=== PATIENT | male | born 1970 | race Caucasian/White ===

== ENCOUNTER 2018-04-29 17:48 | Emergency (ER) | payer MEDICAID, SELFPAY ==
[2018-04-29 17:49] VITALS: BP 161/92; PULSE 89; RESP 18; TEMP 36.7; O2SAT 97; BMI 29.9
[2018-04-29 19:21] LABS: Absolute Lymphocyte Count 1.72 X10^3/ul (0.83-4.51); Absolute Neutrophil Count 2.8 X10^3/uL (2.0-7.7); Basophil# 0.03 X10^3/uL; Basophil% 0.6 % (0-1); Eosinophil# 0.15 X10^3/uL; Eosinophils% 2.9 % (0-5); Hematocrit 38.5 % (40-54); Hemoglobin 12.9 g/dl (13.0-16.5); Lymphocyte # 1.72 X10^3/ul (4.0); Lymphocyte % 33.1 % (19-41); Mean Corp Hgb Conc 33.5 g/gl (32-36); Mean Corpuscular Hgb 31.7 pg (27.0-32.0); Mean Corpuscular Volume 94.6 fL (80-94); Monocyte# 0.44 X10^3/uL; Monocyte% 8.5 % (0-10); Neutrophil # 2.84 X10^3/uL (2.7-7.7); Neutrophil % 54.7 % (47-70); Platelet Count 166 K/mm3 (150-450); RBC Distribution Width CV 12.6 % (11.6-14.6); RBC Distribution Width SD 43.2 fl (35.1-43.9); Red Blood Count 4.07 M/mm3 (4.6-6.2); White Blood Count 5.2 K/mm3 (4.4-11.0)
[2018-04-29 19:22] LABS: POSITIVE COUNT NO; POSITIVE DIFFERENTIAL NO; POSITIVE MORPHOLOGY NO
[2018-04-29 19:39] LABS: ALB/GLOB Ratio 1.3 RATIO (0.9-2.4); AST(SGOT) 15 U/L (15-37); Alanine Aminotransfer ALT/SGPT 32 U/L (16-61); Albumin, Serum 3.9 g/dL (3.2-5.0); Alkaline Phosphatase 71 U/L (45-117); Anion Gap 9 (5-15); BUN 14 mg/dL (7-18); BUN/Creat Ratio 16.9 RATIO (10-20); Calcium,Total 8.8 mg/dL (8.5-10.1); Chloride 104 mmol/L (98-107); Creatinine, Serum 0.83 mg/dL (0.70-1.30); EST Glomerular Filtration Rate 106 mL/min (>60); Est Glom Filt Rate - Afr Amer 128 mL/min (>60); Estimated Creatinine Clearance 122.06 ml/min; Glucose 146 mg/dL (74-106); Potassium 3.6 mmol/L (3.5-5.1); Protein, Total 6.9 g/dL (6.4-8.2); Sodium Level 141 mmol/L (136-145)
[2018-04-29 19:42] LABS: Color, Urine Yellow (Yellow); Glucose, Dipstick Normal (Normal); Ketone-Dipstick Negative (Negative); Leukocyte Esterase-Dipstick 25 /ul (Negative); Nitrite-Dipstick Negative (Negative); Occult Blood-Urine 50 /ul (Negative); Protein-Dipstick Negative (Negative); Urine Bilirubin Dipstick Negative (Negative); Urine Clarity Clear (Clear); Urine Urobilinogen 1 mg/dl (Normal)
[2018-04-29 19:56] VITALS: BP 124/63; PULSE 69; RESP 15; O2SAT 96
[2018-04-29 20:00] VITALS: BP 154/84; PULSE 61; RESP 15; O2SAT 97
--- NOTE | 2018-04-29 21:26 | ED.VISSUMM ---
- ER Visit Summary Date of Service: 04/29/18 Chief Complaint: Bilateral lower extremity swelling and rash History of Present Illness: The patient is a 47 M who presents because of swelling of his legs and feet. 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 Recently he has been sitting it as long as 18 hours. He denies history of congestive heart failure. Does have history coronary disease with placement of 1 stent. He also has hypertension. He denies orthopnea or PND. states he snores during the night and has trouble sleeping. He is not undergone workup for obstructive sleep apnea. This raises possibility of right heart failure, pulmonary hypertension and could be because of edema the lower extremity, as well. The air conditioner in the He has been driving has not been working well and he has hot and sweaty. Physical Examination: Vital signs were noted and remarkable blood pressure 151/92. HEENT exam is unremarkable. Heart is regular without murmur, gallop or rub. S1 and S2 are normal. Lungs are clear to auscultation with good movement of air bilaterally. Abdomen soft nontender. There is swelling of both legs and his feet. There is 1-2+ pitting edema. There is no asymmetry or discoloration. There is no palpable cords, tenderness on the revision of deep venous system or leg vein distention. He does have a red pustular rash noted dorsal surface of the foot anterior ankle and anterior right and left leg. Test Results: CBC reveals mild anemia with H&H 12.9 and 30.5. CMP is remarkable glucose 146. UA was obtained and there is no evidence of proteinuria. Emergency Department Course and Treatment: With history of coronary disease and edema this may represent right-sided heart failure from undiagnosed obstructive sleep apnea, heart failure secondary cardiac disease or dependent edema. To evaluate this a urinalysis was obtained and electronic panel. White count was obtained looking for evidence of leukocytosis significant anemia etc. Treatment Plan: Antibiotic for pustular rash, doxycycline. Patient was given first dose in the emergency department. And elevation. If there is no improvement with elevation will need to purchase support hose. Disposition: Discharged home with appropriate home-going instruction Impression: 1. Dependent edema 2. Pustular rash lower extremity 3. History of coronary disease 4. History of hypertension This note was generated with [employer] software. It may contain incorrect words, spelling, and punctuation that were not noted in review of the chart prior to signing ED Disposition - Plan for ED Patient: Disposition: Home or Assisted Living Chief Complaint: Edema Instructions: ED Lymphedema, ED Erythema Prescriptions: Doxycycline [Vibramycin] 100 mg PO BID #14 cap Referrals: Care Physician,No Primary [Primary Care Provider] - Doctor,Your [STAFF PHYSICIAN] - 1 Week if not improving
[2018-04-29 21:39] VITALS: BP 165/92; PULSE 77; RESP 16; O2SAT 97
== END 2018-04-29 21:41 | disposition home or self-care (01) ==
PROVIDERS: Emergency Provider Emergency Medicine
DX: R60.9 Edema, unspecified (principal); L08.0 Pyoderma; I10 Essential (primary) hypertension; I25.10 Atherosclerotic heart disease of native coronary artery without angina pectoris; Z95.5 Presence of coronary angioplasty implant and graft
CPT/HCPCS: 80053; 81002; 85025; 93005; 99282; A4216

== ENCOUNTER 2018-05-16 12:40 | Emergency (ER) | payer MEDICAID, SELFPAY ==
[2018-05-16 12:42] VITALS: BP 145/94; PULSE 77; RESP 18; TEMP 36.6; O2SAT 98; BMI 28.4
--- NOTE | 2018-05-16 13:39 | ED.VISSUMM ---
- ER Visit Summary Date of Service: 05/16/18 Chief Complaint: Sent to ER by farm specialist to evaluate for DVT. History of Present Illness: The patient is a 47 M who has history of coronary disease, edema who presents because of pain that he localizes over the medial malleolus. He was seen on April 29, 2018 by me for similar presentation. At that time he complained of feet pain and edema. It was determined that he has not been as active. He denies fever, chills night sweats. He denies orthopnea or PND. He denies dyspnea on exertion. He denies symptoms of claudication. He denies history of trauma. Physical Examination: Vital signs noted and remarkable for blood pressure 145/94. HEENT is grossly unremarkable. Heart is regular without murmur, gallop or rub. Lungs clear to auscultation. There is 1-2+ pitting edema of both feet and right and left distal leg. There is no pain the patient over the lateral medial malleolus. There is no evidence of trauma. He has minimal discomfort. PT pulses palpable. Test Results: None are indicated Emergency Department Course and Treatment: Patient has dependent edema. He was told this is related to his inactivity. There is no concern for DVT. Treatment Plan: Discharge to home and follow-up with PCP and farm specialist as needed Disposition: Discharged home Impression: Bilateral dependent lymphedema History of coronary disease History of hypertension This note was generated with [employer] dictation software. It may contain incorrect words, spelling, and punctuation that were not noted in review of the chart prior to signing ED Disposition - Plan for ED Patient: Disposition: Home or Assisted Living Chief Complaint: Lower Extremity Injury Instructions: ED Leg Swelling Bilateral Referrals: Care Physician,No Primary [Primary Care Provider] - Additional Instructions: Follow-up with your farm specialist in 1 week.
--- NOTE | 2018-05-16 13:42 | ED.DCSUM_ITS ---
- ER Visit Summary Date of Service: 05/16/18 Chief Complaint: Sent to ER by anesthesia assistant to evaluate for DVT. History of Present Illness: The patient is a 47 M who has history of coronary disease, edema who presents because of pain that he localizes over the medial malleolus. He was seen on April 29, 2018 by me for similar presentation. At that time he complained of feet pain and edema. It was determined that he has not been as active. He denies fever, chills night sweats. He denies orthopnea or PND. He denies dyspnea on exertion. He denies symptoms of claudication. He denies history of trauma. Physical Examination: Vital signs noted and remarkable for blood pressure 145/ 94. HEENT is grossly unremarkable. Heart is regular without murmur, gallop or rub. Lungs clear to auscultation. There is 1-2+ pitting edema of both feet and right and left distal leg. There is no pain the patient over the lateral medial malleolus. There is no evidence of trauma. He has minimal discomfort. PT pulses palpable. Test Results: None are indicated Emergency Department Course and Treatment: Patient has dependent edema. He was told this is related to his inactivity. There is no concern for DVT. Treatment Plan: Discharge to home and follow-up with PCP and anesthesia assistant as needed Disposition: Discharged home Impression: Bilateral dependent lymphedema History of coronary disease History of hypertension This note was generated with [employer] dictation software. It may contain incorrect words, spelling, and punctuation that were not noted in review of the chart prior to signing ED Disposition - Plan for ED Patient: Disposition: Home or Assisted Living Chief Complaint: Lower Extremity Injury Instructions: ED Leg Swelling Bilateral Referrals: Care Physician,No Primary [Primary Care Provider] - Additional Instructions: Follow-up with your anesthesia assistant in 1 week.
--- NOTE | 2018-05-16 15:01 | ED.RN ---
UPON DISCHARGE PT STARTED YELLING THAT THE DOCTOR DIDNT DO ANYTHING PT WAS VERY ANGRY. EMOTIONAL SUPPORT PROVIDED BUT PT DID NOT ACCEPT. PT WALKED OUT OF BUILDING YELLING THAT HE WILL BE BACK. HRO AND SECURITY NOTIFIED. DR JOHNSON NOTIFIED. PT COMES BACK INTO HIS ROOM. O, DR JOHNSON AND THIS RN AT BEDSIDE EDUCATED PT ON DX AND WHY HE DID NOT MEET CRITERIA FOR FURTHER TESTING. PT STARTED YELLING AT DR JOHNSON. KATIE THOMAS REMAINS AT BEDSIDE. DR JOHNSON LEFT THE ROOM WITH THE PT STILL SCREAMING. PT WAS TOLD HE WAS MORE THAN WELCOME TO GET A SECOND OPINION. PT LEFT DEPARTMENT STILL YELLING. HRO WATCHED PT LEAVE THE PROPERTY.
== END 2018-05-16 15:11 | disposition home or self-care (01) ==
PROVIDERS: Emergency Provider Emergency Medicine
DX: I89.0 Lymphedema, not elsewhere classified (principal); I25.10 Atherosclerotic heart disease of native coronary artery without angina pectoris; I10 Essential (primary) hypertension; Z72.0 Tobacco use
CPT/HCPCS: 99282

== ENCOUNTER 2018-06-17 18:22 | Emergency (ER) | payer MEDICAID, SELFPAY ==
[2018-06-17 18:23] VITALS: PULSE 77; RESP 18; TEMP 37; O2SAT 99; BMI 30.3
[2018-06-17 18:26] VITALS: BP 158/107
--- NOTE | 2018-06-17 18:27 | RAD_ITS ---
STUDY: X-RAY - RIGHT HAND REASON FOR EXAM: Male, 47 years old. Injury. Pain. TECHNIQUE: Three view(s) of the hand. COMPARISON: None. FINDINGS: Bones: There are no acute osseous abnormalities. Joints: The joints are unremarkable. Soft tissues: The soft tissues are unremarkable. Foreign body: None RAD/Hand Min 3 Views IMPRESSION: No acute abnormalities are seen in the hand. Electronically Signed: Jet Del Valle MD at 19:14 EDT , Service support ,
--- NOTE | 2018-06-17 18:50 | ED.VISSUMM ---
- ER Visit Summary Date of Service: 06/17/18 Chief Complaint: Right hand pain History of Present Illness: The patient is a 47 M who has right hand pain. He states he had a chair with his right hand. He has pain over the second MCP area. Is worse with movement. He took nothing for it. He does have a history of a previous fracture to this hand. Physical Examination: Vital signs reviewed. Right hand exam reveals tenderness over the second metacarpal joint area. He has painful range of motion. Test Results: X-rays of the right hand interpreted by myself reveal no fracture Emergency Department Course and Treatment: Patient declined pain medications. He will ice and use NSAIDs at home. He will follow-up with his primary care physician Treatment Plan: [] Disposition: Discharge Impression: Right hand contusion This note was generated with [employer] dictation software. It may contain incorrect words, spelling, and punctuation that were not noted in review of the chart prior to signing ED Disposition - Plan for ED Patient: Disposition: Home or Assisted Living Chief Complaint: Upper Extremity Injury Instructions: ED Contusion Upper Ext Referrals: Care Physician,No Primary [Primary Care Provider] -
--- NOTE | 2018-06-17 18:55 | ED.RN ---
DISCHARGE INSTRUCTIONS GIVEN TO AND REVIEWED WITH PATIENT, PATIENT DENIES QUESTIONS OR CONCERNS AND VOICES UNDERSTANDING OF DISCHARGE INSTRUCTIONS. PT AMBULATES OUT OF ROOM WITHOUT DIFFICULTY .
== END 2018-06-17 18:56 | disposition home or self-care (01) ==
PROVIDERS: Emergency Provider Emergency Medicine
DX: S60.221A Contusion of right hand, initial encounter (principal); W22.03XA Walked into furniture, initial encounter; Y93.9 Activity, unspecified; Y92.9 Unspecified place or not applicable; Y99.9 Unspecified external cause status; I25.10 Atherosclerotic heart disease of native coronary artery without angina pectoris; Z72.0 Tobacco use
CPT/HCPCS: 73130; 99282

== ENCOUNTER 2018-10-15 09:13 | Emergency (ER) | payer MEDICAID, SELFPAY ==
[2018-10-15 09:14] VITALS: BP 169/99; PULSE 77; RESP 18; TEMP 36.6; O2SAT 100
[2018-10-15 09:24] VITALS: BP 169/99; PULSE 77; RESP 15; TEMP 36.6; O2SAT 100
--- NOTE | 2018-10-15 09:28 | CT_ITS ---
STUDY: CT ABDOMEN AND PELVIS WITHOUT CONTRAST REASON FOR EXAM: Male, 48 years old. PT STATED LEFT FLANK PAIN, STATES US AT ANOTHER FACILITY SHOWED 2 KIDNEY STONES 5 DAYS AGO.. RADIATION DOSAGE (If Supplied By Facility): CTDIvol = ( 14.35 ) mGy, DLP = ( 760.04 ) mGycm TECHNIQUE: Transaxial images were obtained from the dome of the diaphragm to the symphysis pubis without oral contrast, and without intravenous contrast. Sagittal and coronal images were reconstructed. Individualized dose optimization techniques were used for this CT. COMPARISON: July 05, 2017 FINDINGS: The visualized lung bases are unremarkable. The visualized portions of the heart are within normal limits. Normal liver. Normal gallbladder and extrahepatic biliary system. Normal spleen. Normal pancreas. Normal bilateral adrenal glands. Normal right kidney. There is a 2 mm calcification at the midpole of the left kidney Normal visualized stomach. Normal small intestine. There are multiple colonic diverticula consistent with diverticulosis. The appendix is visualized and appears normal. There is diffuse atherosclerotic calcification of the abdominal aorta, without a demonstrated aneurysm. Normal inferior vena cava. Normal retroperitoneum. Normal urinary bladder. Normal abdominal wall. There are diffuse degenerative changes of the visualized lumbar spine. CT/Abdomen/Pelvis without Cont IMPRESSION: 2 mm nonobstructing left kidney stone. Mild diverticulosis. Electronically Signed: Ana Montoya MD at 10:15 EST Tel , Service support ,
[2018-10-15 09:33] LABS: Squamous Epithelial Cells - UA 0 SEEN /hpf (0-5); White Blood Cells 0 SEEN /hpf (0-5)
[2018-10-15 09:36] LABS: Color, Urine Yellow (Yellow); Glucose, Dipstick Normal (Normal); Ketone-Dipstick Negative (Negative); Leukocyte Esterase-Dipstick Negative /ul (Negative); Nitrite-Dipstick Negative (Negative); Occult Blood-Urine 50 /ul (Negative); Protein-Dipstick Negative (Negative); Urine Bilirubin Dipstick Negative (Negative); Urine Clarity Sl. Cloudy (Clear); Urine Urobilinogen Normal (Normal)
[2018-10-15] MEDS: Ketorolac 30 MG/ML Syringe IV (09:40)
[2018-10-15 09:41] LABS: Bacteria RARE /hpf (None Seen); Mucous, Urine 1+ /hpf (<or=2+); Red Blood Cells-Urine 0-5 SEEN /hpf (0-5)
--- NOTE | 2018-10-15 09:43 | ED.DCSUM_ITS ---
- ER Visit Summary Date of Service: 10/15/18 Chief Complaint: Left flank pain History of Present Illness: The patient is a 48 M presenting with left flank pain. Patient states this has been intermittent since . He went to his primary care physician and was told he has blood in his urine. He had an outpatient ultrasound which showed kidney stone. He has tried heating pad, Motrin, Tylenol, Aleve at home. He continues to complain of pain. He states he has had some difficulty starting urine stream but has been able to urinate. He denies dysuria. He has nausea with no vomiting. Pain is worsened with different positions. Denies fever. Denies other complaints. Physical Examination: Vitals are stable. Patient is afebrile. Alert no acute distress. HEENT exam is unremarkable. Neck is supple. Lungs are clear and equal bilaterally. Heart is regular rate and rhythm. Abdomen is soft nontender nondistended. No rebound or guarding. Back left CVA tenderness Extremities are unremarkable. Skin is warm and dry. Remainder of exam is unremarkable. Emergency Department Course and Treatment: Patient was given Toradol IV. Urinalysis shows 0 white cells, 0-[address] abdomen pelvis shows 2 mm nonobstructing left kidney stone. Mild diverticulosis. On reevaluation, patient is resting comfortably. He is given a prescription for Flexeril. Advised to continue NSAIDs. Advised to follow-up with primary care physician. Advised return to ED if worsening complaints. Disposition: Discharge home Impression: Left flank pain This note was generated with [employer] dictation software. It may contain incorrect words, spelling, and punctuation that were not noted in review of the chart prior to signing ED Disposition - Plan for ED Patient: Referrals: Care Physician,No Primary [Primary Care Provider] -
--- NOTE | 2018-10-15 11:03 | ED.DEP ---
ED Disposition - Plan for ED Patient: Instructions: ED Flank Pain Uncertain Cause Prescriptions: Cyclobenzaprine [Flexeril] 10 mg PO TID PRN #20 tablet PRN Reason: Muscle Spasm Referrals: Care Physician,No Primary [Primary Care Provider] -
[2018-10-15 11:22] VITALS: RESP 18
== END 2018-10-15 11:23 | disposition home or self-care (01) ==
LOC: ED 09:29
PROVIDERS: Emergency Provider Emergency Medicine
DX: R10.9 Unspecified abdominal pain (principal); N20.0 Calculus of kidney; K57.90 Diverticulosis of intestine, part unspecified, without perforation or abscess without bleeding; R31.9 Hematuria, unspecified; R11.0 Nausea; I25.10 Atherosclerotic heart disease of native coronary artery without angina pectoris; I10 Essential (primary) hypertension; Z72.0 Tobacco use
CPT/HCPCS: 74176; 81001; 96374; 99283; A4216

== ENCOUNTER 2019-01-24 10:24 | Emergency (ER) | payer MEDICAID, SELFPAY ==
[2019-01-24 10:25] VITALS: BP 140/92; PULSE 73; RESP 16; TEMP 37.3; O2SAT 98; BMI 29.0
--- NOTE | 2019-01-24 10:45 | CT_ITS ---
STUDY: CT SOFT TISSUE NECK WITH CONTRAST REASON FOR EXAM: Male, 48 years old. Right facial swelling and history of infected salivary gland. RADIATION DOSAGE (If Supplied By Facility): CTDIvol = ( 20.19 ) mGy, DLP = ( 635.45 ) mGycm TECHNIQUE: The patient was scanned in a multi-detector CT scanner. High resolution transaxial imaging was performed following intravenous administration of 100 IV Isovue 300. Sagittal and coronal images were reconstructed. Individualized dose optimization techniques were used for this CT. COMPARISON: None. FINDINGS: Normal bilateral parotid glands. Normal bilateral boatbuilder wood spaces. Normal bilateral parapharyngeal spaces. Normal bilateral carotid spaces. Normal bilateral sublingual and submandibular glands and spaces. Normal visualized nasopharynx. Normal retropharyngeal space. Normal perivertebral space. Normal visualized bilateral faucial tonsils. The visualized tongue, tongue base and oropharynx are normal. There are minimally enlarged lymph nodes of the neck, with preservation of normal reema architecture, consistent with a reactive lymph hyperplasia. There is no demonstrated solid or cystic mass lesion. There is no abnormal contrast enhancement. Normal epiglottis, bilateral vallecula and hypopharynx. The pre-epiglottic and paraglottic adipose spaces are normal. Normal visualized bilateral piriform sinuses, aryepiglottic folds, vocal cords, and arytenoid-cricoid articulations. Normal subglottic trachea. Normal bilateral lobes of the thyroid gland. Normal visualized pulmonary apices. Normal visualized paranasal sinuses. Normal visualized cervical spine. CT/Soft Tissue Neck WITH Contrast IMPRESSION: Normal enhanced CT examination of the soft tissues of the neck. Electronically Signed: Ranjith Turner, at 11:21 EDT , Service support ,
--- NOTE | 2019-01-24 11:12 | ED.DCSUM_ITS ---
- ER Visit Summary Date of Service: 01/24/19 Chief Complaint: Right-sided neck pain History of Present Illness: The patient is a 48 M who has right-sided neck pain. Is been ongoing for 2 weeks. He describes a throbbing just below the angle of the mandible on the right-hand side. He was on amoxicillin for 10 days from the urgent care for a proposed salivary gland infection. The pain is still there even after the antibiotics. He denies any fevers. No trauma. He has been trying Motrin and Tylenol without any relief. He denies any ear pain or drainage. No sore throat with swallowing. Physical Examination: Vital signs reviewed. HEENT exam reveals mucous membrane that are moist. His oropharynx is normal. He has right-sided neck tenderness to palpation. There are no masses or swelling. His neck is supple. His physical exam is otherwise unremarkable. See T-sheet for details Test Results: CT of the soft tissue neck reveals no acute abnormalities Emergency Department Course and Treatment: I am unclear of the patient's pain as he has no obvious causes on the CAT scan. I will give him naproxen to help with pain control. I will give him referral for a follow-up to a primary doctor Treatment Plan: [] Disposition: Discharge Impression: Right-sided neck pain This note was generated with [employer] dictation software. It may contain incorrect words, spelling, and punctuation that were not noted in review of the chart prior to signing ED Disposition - Plan for ED Patient: Referrals: Care Physician,No Primary [Primary Care Provider] -
--- NOTE | 2019-01-24 11:35 | ED.DEP ---
ED Disposition - Plan for ED Patient: Disposition: Home or Assisted Living Instructions: ED Neck Pain No Trauma Prescriptions: Naproxen [Naprosyn] 500 mg PO BID PRN #20 tab Referrals: Care Physician,No Primary [Primary Care Provider] - Maci Davis MD [COURTESY STAFF PHYSICIAN] -
--- NOTE | 2019-01-24 11:52 | ED.RN ---
IV DC'ED, CATHETER INTACT, SMALL GAUZE DRESSING PLACED. DISCHARGE INSTRUCTIONS GIVEN TO AND REVIEWED WITH PATIENT, PATIENT DENIES QUESTIONS OR CONCERNS AND VOICES UNDERSTANDING OF DISCHARGE INSTRUCTIONS. PT AMBULATES OUT OF ROOM WITHOUT DIFFICULTY.
== END 2019-01-24 11:52 | disposition home or self-care (01) ==
PROVIDERS: Emergency Provider Emergency Medicine
DX: M54.2 Cervicalgia (principal); I25.10 Atherosclerotic heart disease of native coronary artery without angina pectoris; I10 Essential (primary) hypertension; Z72.0 Tobacco use; I25.2 Old myocardial infarction
CPT/HCPCS: 70491; 99283; A4216

== ENCOUNTER 2019-05-16 04:07 | Emergency (ER) | payer OTHER, SELFPAY ==
[2019-05-16 04:08] VITALS: BP 149/94; PULSE 81; RESP 16; TEMP 36.7; O2SAT 99; BMI 27.9
--- NOTE | 2019-05-16 04:22 | ED.DCSUM_ITS ---
History of Present Illness Chief Complaint: Upper Extremity Injury Narrative: Patient is a 48-year-old male who presents with right forearm pain. 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 He had a sudden pain in his mid right forearm along the ulnar side. He was able to go to work and work for 12 hours but does complain of ongoing pain in the forearm. No numbness tingling or weakness. No recent medical illness otherwise. Past Medical History - Allergies and Home Meds Allergies/Adverse Reactions: Allergies No Known Allergies Allergy (Verified 05/16/19 04:08) Primary Care Physician: Care Physician,No Primary [Primary Care Provider] - Past Medical History: - - Coronary artery disease, [place], cardiac catheterization with stent Surgical History: - - cardiac catheterization Smoking Status: Current every day smoker - Family History Paternal Family History: Reports: High Cholesterol, Heart Disease Maternal Family History: Reports: High Cholesterol, Heart Disease Review of Systems All systems negative except as indicated General: Denies: Fever Cardiovascular: Denies: Chest pain Respiratory: Denies: Dyspnea Musculoskeletal: Reports: - - Right forearm pain Physical Exam Vital Signs/Narrative: Vital Signs Temp Pulse Resp BP Pulse Ox 05/16/19 04:08 98.1 F 81 16 149/94 H 99 Inital Vital Signs reviewed: Yes General: Well nourished Head: Normocephalic Eyes: EOMI ENT: Moist mucous membranes Cardiovascular: Regular rate Respiratory: No distress Extremities: - - Patient has tenderness along the mid forearm on the ulnar side no bony deformity active full range of motion of the right upper extremity easily palpable radial pulse brisk capillary refill of the digits normal sensation to light touch in the median ulnar and radial nerve distributions. Skin: Normal color Neurological: Alert Psychological: Normal affect Diagnostic/Tx/Re-eval Impressions Forearm X-Ray 05/16/19 04:22 IMPRESSION: Normal x-ray examination of the radius and ulna. Electronically Signed: Nate Horton MD at 4:56 EDT , Service support , 05/16/19 04:22 Forearm 2 Views [RAD] Stat - Medical Decision Making X-ray unremarkable, no fracture. Symptoms are most consistent with a muscular forearm strain. Patient advised on supportive care such as rest ice elevation. He was advised to use anti-inflammatories. He understands to return for new or worsening symptoms. He was discharged. ED Disposition - Plan for ED Patient: Disposition: Home or Assisted Living Diagnosis: Strain of forearm, right Instructions: MUSCLE STRAIN, Extremity Referrals: Care Physician,No Primary [Primary Care Provider] -
--- NOTE | 2019-05-16 04:22 | RAD_ITS ---
STUDY: X-RAY - RIGHT RADIUS AND ULNA REASON FOR EXAM: Male, 48 years old. Pain proximal one half of the right forearm after injury. TECHNIQUE: 2 view(s) of the forearm. COMPARISON: None. FINDINGS: There is no demonstrated soft tissue swelling. Normal visualized radius. Normal visualized ulna. RAD/Forearm 2 Views IMPRESSION: Normal x-ray examination of the radius and ulna. Electronically Signed: Nate Horton MD at 4:56 EDT , Service support ,
[2019-05-16 05:21] VITALS: PULSE 78; RESP 16; O2SAT 100
== END 2019-05-16 05:22 | disposition home or self-care (01) ==
PROVIDERS: Emergency Provider Emergency Medicine
DX: S56.911A Strain of unspecified muscles, fascia and tendons at forearm level, right arm, initial encounter (principal); X50.1XXA Overexertion from prolonged static or awkward postures, initial encounter; Y93.9 Activity, unspecified; Y92.007 Garden or yard of unspecified non-institutional (private) residence as the place of occurrence of the external cause; Y99.9 Unspecified external cause status; I25.10 Atherosclerotic heart disease of native coronary artery without angina pectoris; I25.2 Old myocardial infarction; F17.200 Nicotine dependence, unspecified, uncomplicated
CPT/HCPCS: 73090; 99282

== ENCOUNTER 2020-04-13 21:02 | Emergency (ER) | payer SELFPAY ==
[2019-10-04 13:33] VITALS: BMI 26.5
[2020-04-13 21:03] VITALS: BP 143/91; PULSE 90; RESP 15; TEMP 36.4; O2SAT 97; BMI 25.0
--- NOTE | 2020-04-13 21:18 | ED.VIS.INJ ---
History of Present Illness Chief Complaint: Upper Extremity Injury Informant: Patient Onset: Today Mechanism/Context: Blunt Injury, Fall Quality of Pain: Dull, Aching Location: Right wrist Current Severity: Mild Maximum Severity: Moderate Worsened by: Movement or use Relieved by: Less pain with rest Associated Symptoms: Loss of function. Negative for: Parasthesias, Weakness, Inability to ambulate, Loss of consciousness Narrative: Patient is a 49-year-old [id number] male presents with injury to his right wrist. He was walking. He slipped on rocks. He landed on his outstretched right upper extremity. He presents because of wrist pain and swelling. He reports pain that is 3 cm proximal to the wrist joint and mid hand. There is swelling noted over the distal radial side of the wrist. He denies paresthesia, anesthesia or motor weakness. He states he drove himself to the emergency department. He denies injury to his elbow, shoulder, torso or head. Prior similar symptoms: No Recent Illness/Hospitalization: No - Past Medical History (1) Atherosclerotic heart disease of [place] coronary artery without angina pectoris Status: Chronic (2) Essential hypertension Status: Chronic (3) Mixed hyperlipidemia Status: Chronic (4) Tobacco abuse Status: Chronic Past Medical History - Allergies and Home Meds Allergies/Adverse Reactions: Allergies No Known Allergies Allergy (Verified 04/13/20 21:06) Primary Care Physician: Care Physician,No Primary [Primary Care Provider] - Prior records reviewed: Yes Surgical History: noncontributory, - - cardiac catheterization Lives: Alone Smoking Status: Current every day smoker Drugs: None - Family History Paternal Family History: Family History (Last Updated 10/04/19 @ 13:39 by Tuyet Vaughn) Father Myocardial infarction CHF (congestive heart failure) Mother CHF (congestive heart failure) Family History: Reports: High Cholesterol, Heart Disease Maternal Family History: Family History (Last Updated 10/04/19 @ 13:39 by Tuyet Vaughn) Father Myocardial infarction CHF (congestive heart failure) Mother CHF (congestive heart failure) Family History: Reports: High Cholesterol, Heart Disease Review of Systems General: Denies: Chills, Fever Eyes: Denies: Visual changes - bilaterally, Blurred Vision - bilaterally Cardiovascular: Denies: Chest pain, Palpitations Respiratory: Denies: Dyspnea, Cough Gastrointestinal: Denies: Nausea, Vomiting Musculoskeletal: Reports: Swelling, Extremity Pain. Denies: Myalgias, Arthralgias Skin: Denies: Rash, Abscess, Abrasions Neurological: Denies: Weakness, Parasthesia, Numbness Hematologic: Denies: Easy bruising, Easy bleeding Physical Exam Vital Signs/Narrative: Vital Signs Temp Pulse Resp BP Pulse Ox 04/13/20 21:03 97.5 F L 90 15 143/91 H 97 Inital Vital Signs reviewed: Yes General: Well nourished, Well developed Head: Normocephalic, Atraumatic Eyes: Perrl, EOMI. Negative for: Pale conjunctiva, Scleral icterus Cardiovascular: Regular rate, Regular rhythm Respiratory: No distress Extremeties: Is swelling over the anatomical snuffbox. There is pain with axial loading of the right thumb and over the anatomical snuffbox. There is pain to palpation over the distal radius. There is no pain ovation of the distal ulna. There is no pain the patient over the metacarpal bones or phalanges. There is no subungual hematoma noted. Median, radial and ulnar function intact. There is no pain the patient over the lateral medial epicondyle has no pain the patient with olecranon process. Is no pain the patient over the radial head with supination pronation. There is no pain the patient over the proximal humerus, clavicle or AC joint. Skin: Normal color, No rash Neurological: Alert, Oriented x3, Cranial nerves II-XII grossly intact, Normal Strength, Normal Sensation Diagnostic/Tx/Re-eval Chest X-Ray - ED: Read by ED Physician, - - 4 view x-ray of the wrist was obtained. Patient has a transverse nondisplaced non-angulated extra-articular distal radial fracture. - Medical Decision Making Review x-ray of the right wrist was obtained including a navicular view. Clinically concern patient has a navicular fracture. Procedures - Upper Extremity Splints Upper Extremity Splint: Plaster - Short arm AP splint Splint Fabrication: Fabricated ED Disposition - Plan for ED Patient: Disposition: Home or Assisted Living Diagnosis: Distal radius fracture, right Instructions: ED WRIST FRACTURE General Prescriptions: Hydrocodone Bitart/Apap 5-325 [[place] 5MG-325MG] 1 tab PO Q6H PRN PRN 3 Days #10 tab PRN Reason: Pain Transmission Status: Received by [facility] Referrals: Care Physician,No Primary [Primary Care Provider] - Susannah Miguel DO [STAFF PHYSICIAN] - 5-7 Days Additional Instructions: 1. Keep splint absolutely clean and dry 2. Keep wrist elevated above nose 3. Apply ice to splint 6-8 times a day for 20 to 30 minutes per application 4. Call Dr. Miguel's office in the morning to set up an appointment.
--- NOTE | 2020-04-13 21:36 | RAD_ITS ---
STUDY: X-RAY - RIGHT WRIST REASON FOR EXAM: Male, 49 years old. PAIN IN RIGHT WRIST SPECIFICALLY IN THE ANATOMICAL SNUFFBOX, INJURY FROM FALL. TECHNIQUE: 3 view(s) of the wrist were obtained. COMPARISON: None. FINDINGS: Acute nondisplaced fracture of the distal right radius with mild associated soft tissue swelling. The remainder of the visualized osseous structures are intact. No fracture identified at the scaphoid. RAD/Wrist min 3 Views IMPRESSION: Acute nondisplaced fracture of the distal right radius with mild associated soft tissue swelling. Electronically Signed: Enrique Riley, at 22:09 EDT Tel , Service support ,
[2020-04-13 22:49] VITALS: BP 152/109
== END 2020-04-13 23:45 | disposition home or self-care (01) ==
PROVIDERS: Emergency Provider Emergency Medicine
DX: S52.591A Other fractures of lower end of right radius, initial encounter for closed fracture (principal); W01.198A Fall on same level from slipping, tripping and stumbling with subsequent striking against other object, initial encounter; Y93.01 Activity, walking, marching and hiking; Y92.9 Unspecified place or not applicable; Y99.9 Unspecified external cause status; E78.2 Mixed hyperlipidemia; I10 Essential (primary) hypertension; I25.10 Atherosclerotic heart disease of native coronary artery without angina pectoris; F17.200 Nicotine dependence, unspecified, uncomplicated; Z82.49 Family history of ischemic heart disease and other diseases of the circulatory system
CPT/HCPCS: 29125; 73110; 99283

== ENCOUNTER → 2020-04-24 14:10 | Outpatient (CLI) | payer SELFPAY ==
[2020-04-24 14:07] VITALS: BMI 25.7
--- NOTE | 2020-04-24 14:10 | RAD_ITS ---
STUDY: X-RAY - RIGHT WRIST REASON FOR EXAM: Follow-up right wrist fracture. TECHNIQUE: 3 view(s) of the wrist were obtained. COMPARISON: Radiographs 04/13/2020. FINDINGS: There is a nondisplaced distal radial fracture without interval change. Normal radiocarpal articulation. Normal distal radioulnar articulation. Normal carpal bones. Normal carpal articulations. Normal carpometacarpal articulation of the thumb. Normal second through fifth carpometacarpal articulations. Normal visualized metacarpal bones. There is an overlying cast. RAD/Wrist min 3 Views IMPRESSION: No interval change of distal radial fracture. Electronically Signed: Kota Keller MD at 15:08 EDT Tel , Service support ,
== END ==
LOC: HPRAD 14:10
PROVIDERS: Referring Provider Orthopaedic Surgery; Visit Provider Orthopaedic Surgery
DX: S62.001A Unspecified fracture of navicular [scaphoid] bone of right wrist, initial encounter for closed fracture (principal); S52.501A Unspecified fracture of the lower end of right radius, initial encounter for closed fracture
CPT/HCPCS: 73110

== ENCOUNTER 2020-05-06 21:37 | Emergency (ER) | payer SELFPAY ==
[2020-04-24 14:07] VITALS: BMI 25.7
[2020-05-06 21:38] VITALS: BP 135/89; PULSE 89; RESP 22; TEMP 36.2; O2SAT 99; BMI 26.2
[2020-05-06 21:41] VITALS: PULSE 85
--- NOTE | 2020-05-06 22:27 | ED.VIS.GEN ---
History of Present Illness Chief Complaint: Overdose Informant: Patient, Denial Resolution Specialist Onset: Today Narrative: Patient brought in by EMS after overdose. Per EMS report patient was found by a friend with snoring respirations lying on his bedroom floor. He reportedly admitted to EMS that he used heroin and Percocet after they gave him a total of 7 mg of Narcan (4 mg intranasal, 3 mg IV). At this time patient is awake and alert. He tells me he did not use heroin tonight but did take a 30 mg oxycodone tab. He states the next thing he remembers after taking this was EMS reviving him. He states this was not an attempt to harm himself. - Past Medical History (1) Kidney stone Status: Chronic (2) Anxiety and depression Status: Chronic (3) Old myocardial infarction Status: Chronic (4) Atherosclerotic heart disease of [place] coronary artery without angina pectoris Status: Chronic (5) Essential hypertension Status: Chronic (6) Mixed hyperlipidemia Status: Chronic (7) Presence of stent in coronary artery Status: Chronic Comment: PCI/DAVID to CX 11/2014 (8) Tobacco abuse Status: Chronic Past Medical History - Allergies and Home Meds Allergies/Adverse Reactions: Allergies No Known Allergies Allergy (Verified 04/15/20 09:01) Primary Care Physician: [facility] [STAFF PHYSICIAN] - As Needed Prior records reviewed: Yes Surgical History: noncontributory, - - cardiac catheterization Smoking Status: Current every day smoker - Family History Paternal Family History: Family History (Last Reviewed 04/15/20 @ 09:04 by Taya Rothman) Father Myocardial infarction CHF (congestive heart failure) Mother CHF (congestive heart failure) Family History: Reports: High Cholesterol, Heart Disease Maternal Family History: Family History (Last Reviewed 04/15/20 @ 09:04 by Taya Rothman) Father Myocardial infarction CHF (congestive heart failure) Mother CHF (congestive heart failure) Family History: Reports: High Cholesterol, Heart Disease Review of Systems General: Denies: Chills, Fever Eyes: Denies: Visual changes - bilaterally ENT: Denies: Bilateral ear pain Cardiovascular: Denies: Chest pain Respiratory: Denies: Dyspnea Gastrointestinal: Denies: Abdominal pain, Vomiting, Diarrhea Musculoskeletal: Denies: Extremity Pain Skin: Denies: Rash Neurological: Denies: Headache Hematologic: Denies: Easy bruising, Easy bleeding Allergy: Denies: Uticaria Physical Exam Vital Signs/Narrative: Vital Signs Temp Pulse Resp BP Pulse Ox 05/06/20 21:41 85 05/06/20 21:38 97.1 F L 89 22 H 135/89 H 99 Inital Vital Signs reviewed: Yes General: Well nourished, Well developed Head: Normocephalic ENT: Moist mucous membranes Neck: Supple Cardiovascular: Regular rate, Regular rhythm Respiratory: No distress, CTA bilaterally Abdomen: Soft, Nontender Extremities: - - Right upper extremity in a cast. Neurological: Alert, Oriented x3 Psychological: Normal affect Diagnostic/Tx/Re-eval - Medical Decision Making Patient was observed on threat monitoring analyst with continuous pulse ox. Patient has been observed for 2.5 hours in the emergency room. At this point he is awake and eating without difficulty. His O2 sats have maintained on room air throughout his stay. He will be discharged home at this time. Patient does voice that this was not an attempt to harm himself. ED Disposition - Plan for ED Patient: Disposition: Home or Assisted Living Diagnosis: Opioid overdose Instructions: ED Overdose Opiate Referrals: [facility] [STAFF PHYSICIAN] - As Needed
[2020-05-06 22:47] VITALS: BP 120/84; PULSE 73; RESP 15; O2SAT 93
[2020-05-06 23:16] VITALS: BP 137/99; PULSE 82; RESP 17; O2SAT 95
--- NOTE | 2020-05-06 23:33 | ED.RN ---
pt requests this rn contact pt girlfriend. pt gives verbal permission to share pt medical information. Micaela pt girlfriend contacted and notified of pt presence in the emergency department. girlfriend reports to call when pt is cleared for discharge.
--- NOTE | 2020-05-07 00:16 | ED.RN ---
ON CUSOMER SERVICE ROUNDING, PT REQUESTS A SNACK AND WATER REPORTS I AM FEELING MORE AWAKE AND GETTING HUNGRY, CAN I HAVE A SNACK. PT GIVEN SNACK. DR. VICKERS INFORMED OF PT BEING ALERT AND AWAKE. PT CLEARED FOR D/C. PT GIRLFRIEND JANES CONTACTED FOR A RIDE HOME.
[2020-05-07 00:22] VITALS: BP 136/99; PULSE 80; RESP 18; O2SAT 99
--- NOTE | 2020-05-07 00:23 | ED.RN ---
PT GIVEN WRITTEN AND VERBAL DISCHARGE INSTRUCTIONS AND EDUCATED ON OPIATE OVERDOSE. PT IS A+OX4 AND VERBALIZES UNDERSTANDING AND DENIES ANY FURTHER QUESTIONS. IV D/C AND COVERED WITH 2X2 GAUZE.
== END 2020-05-07 00:25 | disposition home or self-care (01) ==
PROVIDERS: Emergency Provider Emergency Medicine
DX: T40.2X1A Poisoning by other opioids, accidental (unintentional), initial encounter (principal); E78.2 Mixed hyperlipidemia; F41.9 Anxiety disorder, unspecified; I10 Essential (primary) hypertension; I25.10 Atherosclerotic heart disease of native coronary artery without angina pectoris; I25.2 Old myocardial infarction; F17.200 Nicotine dependence, unspecified, uncomplicated; Z82.49 Family history of ischemic heart disease and other diseases of the circulatory system; Z87.442 Personal history of urinary calculi; Z95.5 Presence of coronary angioplasty implant and graft
CPT/HCPCS: 99285; J7030; A4216

== ENCOUNTER 2021-05-02 23:05 | Emergency (ER) | payer MEDICAID, SELFPAY ==
[2021-05-02 23:07] VITALS: BP 188/132; PULSE 112; RESP 16; TEMP 36.4; O2SAT 94; BMI 27.1
[2021-05-02 23:16] VITALS: BP 188/132; PULSE 112; RESP 16; TEMP 36.4; O2SAT 94
--- NOTE | 2021-05-02 23:36 | EDS_ITS ---
HPI History of Present Illness Chief Complaint: Cellulitis Narrative Narrative: Patient is a 50-year-old male who states that he has noticed some increased redness and slight swelling to his right leg with no known injury. He states he is on his feet a lot and also spends a lot of time [place]. He is unsure if he was bitten but denies any recent bite or trauma. He states he has had some pain and swelling and with concerned that this could be an infectious process or even a blood clot presents for evaluation. [facility] Medical History (Updated 05/02/21 @ 23:[address] Doug Castellano ) Atherosclerotic heart disease of [place] coronary artery without angina pectoris Chest pain at rest Essential hypertension Hypertension goal BP (blood pressure) < 130/80 Mixed hyperlipidemia Old myocardial infarction Presence of stent in coronary artery (~11/2014) Tobacco abuse Wheezing Home Medications atorvastatin 80 mg tablet 80 mg PO QHS #30 tab 10/04/19 [Rx Last Taken Unknown] aspirin 81 mg tablet,delayed release 81 mg PO DAILY 07/15/20 [History Last Taken Unknown] amlodipine 10 mg tablet See Rx Instructions .ROUTE .COMPLEX #90 tab 10/15/20 [Rx Last Taken Unknown] atenolol 50 mg tablet 75 mg PO DAILY #135 tab 10/31/20 [Rx Last Taken Unknown] clindamycin HCl [Cleocin HCl] 300 mg PO Q6H #40 cap 05/02/21 [Rx Last Taken Unknown] Allergy/AdvReac Type Severity Reaction Status Date / Time No Known Allergies Allergy Verified 05/02/21 23:09 Family History Father Myocardial infarction CHF (congestive heart failure) Mother CHF (congestive heart failure) Surgical History Presence of coronary angioplasty implant and graft (~11/2014) Social History (Updated 07/15/20 @ 12:[address] Susannah Miguel ) Smoking Status: Current every day smoker tobacco type: cigarettes alcohol intake: never substance use type: does not use caffeine: Yes Type: coffee Number of servings: 1 ROS ROS ED Constitutional Constitutional ED: Denies chills or fever(s) Cardiovascular Cardiovascular: Denies chest pain Respiratory/Chest Respiratory/Chest: Denies cough or dyspnea Gastrointestinal Gastrointestinal: Denies nausea or vomiting Musculoskeletal Musculoskeletal: Reports myalgias Integumentary Reports rash Neurologic Neurologic: Denies headache(s) Hematologic/Lymphatic Hematologic/Lymphatic: Denies easy bleeding or easy bruising EXAM Physical Exam Const Vital Signs: 05/02/21 23:07 05/02/21 23:16 Temperature 97.6 F L 97.6 F L Temperature Source Temporal Temporal Pulse Rate 112 H 112 H Respiratory Rate 16 16 Respiratory Effort Normal Respiratory Pattern Normal Blood Pressure 188/132 H 188/132 H Blood Pressure Mean 150 150 Pulse Ox 94 94 Oxygen Delivery Method Room Air Room Air Positive well nourished and well developed General Appearance ED: well developed Eyes PERRL and EOMs intact bilaterally Neck supple and no JVD Resp normal respiratory effort and clear to auscultation bilaterally Cardio regular rate and regular rhythm Extremity Extremity Narrative: Right lower extremity is neurovascular intact. There is slight asymmetric swelling noted of the right leg compared to left but negative Homans' sign bilaterally. Patient has overlying erythema that is blanchable on the anterior surface of the right lower leg that extends up towards the right knee. No obvious abscess formation or lymphangitic streaking noted. Neuro oriented x3 and CN's II-XII intact bilaterally Sensorium / Orientation: alert Motor Exam: strength 5/5 throughout Psych mental status grossly normal Skin Skin Narrative: Soft tissue changes to the right lower leg as documented above MDM MDM MDM Narrative Medical decision making narrative: Patient presented to the ER afebrile. He had no risk for DVT and on exam his symptoms do not suggest DVT but more of a cellulitis. I discussed I can perform an outpatient DVT study tomorrow for him but he states as I have low concern this is a DVT based on his risk factors on exam he does not want that performed. We also discussed basic laboratory studies to check his blood work for the infectious process. Patient states that as I have low concern this is gone systemic at this point will need admitted he does not want further testing and at this time will just take antibiotic. Patient will therefore be started on clindamycin and will be discharged home with outpatient follow-up Discharge Plan Triage Chief Complaint: Cellulitis ED Provider: Doug Castellano Dx/Rx/DC Orders Clinical Impression: Cellulitis Instructions: ED Cellulitis Prescriptions: New clindamycin HCl [Cleocin HCl] 300 mg capsule 300 mg PO Q6H Qty: 40 RF: 0 No Action atorvastatin 80 mg tablet 80 mg PO QHS Qty: 30 RF: 11 aspirin [Adult Low Dose Aspirin] 81 mg tablet,delayed release (DR/EC) 81 mg PO DAILY RF: 0 amlodipine 10 mg tablet See Rx Instructions .ROUTE .COMPLEX Qty: 90 RF: 3 atenolol 50 mg tablet 75 mg PO DAILY Qty: 135 RF: 3 Primary Care Provider: Care Physician,No Primary Referrals: Ale Cheney MD [STAFF PHYSICIAN] - Care Physician,No Primary [Primary Care Provider] - Disposition Disposition: Home, Self Care
[2021-05-03] MEDS: Clindamycin HCl 150 MG Capsule 300 MG PO (00:19)
== END 2021-05-03 00:19 | disposition home or self-care (01) ==
PROVIDERS: Emergency Provider Emergency Medicine
DX: L03.90 Cellulitis, unspecified (principal); F17.210 Nicotine dependence, cigarettes, uncomplicated; E78.2 Mixed hyperlipidemia; I10 Essential (primary) hypertension; I25.10 Atherosclerotic heart disease of native coronary artery without angina pectoris; I25.2 Old myocardial infarction; Z79.82 Long term (current) use of aspirin; Z95.5 Presence of coronary angioplasty implant and graft
CPT/HCPCS: 99283

== ENCOUNTER 2021-09-18 00:51 | Emergency (ER) | payer MEDICAID, SELFPAY ==
[2021-09-18 00:52] VITALS: BP 203/120; PULSE 114; RESP 15; TEMP 36.6; O2SAT 99; BMI 24.3
--- NOTE | 2021-09-18 01:07 | EDS_ITS ---
HPI History of Present Illness Chief Complaint: Lower Extremity Injury Informant: patient Narrative Narrative: 51-year-old male presents to the emergency department with concerns for frostbite. Patient states he was working outside today his feet got wet. When he got home tonight he noticed that his toes particular on the right side were very painful and red. He did some warm soaks and a couple showers. He did a virtual visit and they recommended he come to emergency. Patient states that he normally takes a aspirin a day but did not take 1 today. He still had some Motrin after he got off work and does not wish anything for pain. He has a smoker with a history of coronary artery disease. [facility] Medical History (Updated 09/18/21 @ 01:[address] Don Coombs DO) Atherosclerotic heart disease of [place] coronary artery without angina pectoris Chest pain at rest Essential hypertension Hypertension goal BP (blood pressure) < 130/80 Mixed hyperlipidemia Old myocardial infarction Presence of stent in coronary artery (~11/2014) Tobacco abuse Wheezing Home Medications atorvastatin 80 mg tablet 80 mg PO QHS #30 tab 10/04/19 [Rx Last Taken Unknown] aspirin 81 mg tablet,delayed release 81 mg PO DAILY 07/15/20 [History Last Taken Unknown] amlodipine 10 mg tablet See Rx Instructions .ROUTE .COMPLEX #90 tab 10/15/20 [Rx Last Taken Unknown] atenolol 50 mg tablet 75 mg PO DAILY #135 tab 10/31/20 [Rx Last Taken Unknown] amlodipine 10 mg PO DAILY #30 tab 09/18/21 [Rx Last Taken Unknown] atenolol 100 mg PO DAILY #45 tab 09/18/21 [Rx Last Taken Unknown] atorvastatin 80 mg PO DAILY #30 tab 09/18/21 [Rx Last Taken Unknown] Allergy/AdvReac Type Severity Reaction Status Date / Time No Known Allergies Allergy Verified 09/18/21 01:03 Family History Father Myocardial infarction CHF (congestive heart failure) Mother CHF (congestive heart failure) Surgical History Presence of coronary angioplasty implant and graft (~11/2014) Social History Smoking Status: Current every day smoker tobacco type: cigarettes alcohol intake: never substance use type: does not use caffeine: Yes Type: coffee Number of servings: 1 ROS ROS ED Constitutional Constitutional ED: Denies chills, fever(s) or weight loss Eyes Eyes: Denies change in vision or diplopia ENT ENT ED: Denies ear pain, rhinorrhea or sore throat Cardiovascular Cardiovascular: Denies chest pain, orthopnea, palpitations or racing heartbeat Respiratory/Chest Respiratory/Chest: Denies cough, dyspnea or orthopnea Gastrointestinal Gastrointestinal: Denies abdominal pain, diarrhea, nausea or vomiting Genitourinary Genitourinary ED: Denies dysuria, hematuria or urinary frequency Musculoskeletal Musculoskeletal: Reports other Details: See history of present illness ; Denies arthralgias or myalgias Integumentary Denies abscess or rash Neurologic Neurologic: Denies headache(s) or weakness Psychiatric Psychiatric: Denies anxiety, depression, suicidal ideation or suicidal thoughts Endocrine Endocrinology: Denies polydipsia, polyphagia or polyuria Allergic/Immunologic Allergic/Immunologic ED: Denies mouth swelling, tongue swelling or urticaria EXAM Physical Exam Const Vital Signs: 09/18/21 00:52 Temperature 97.9 F Temperature Source Temporal Pulse Rate 114 H Respiratory Rate 15 Blood Pressure 203/120 H Blood Pressure Mean 147 Pulse Ox 99 Oxygen Delivery Method Room Air Positive well nourished and well developed General Appearance ED: well developed HEENT Reports normocephalic, head/scalp atraumatic, TM's clear and moist mucous membranes Negative for trauma Tympanic Membrane ED: Yes TM's clear Eyes PERRL and EOMs intact bilaterally Neck no lymphadenopathy, supple and no JVD Resp normal respiratory effort and clear to auscultation bilaterally Cardio regular rate, regular rhythm and no murmurs GI normal to inspection, nondistended, normoactive bowel sounds and non-tender Palpation: soft Back/Spine no CVA tenderness and normal ROM Extremity normal to inspection Extremity Narrative: The toes on both sides demonstrates some mild erythema of the skin. They are warm. Strong dorsalis pedis pulse bilaterally. I do not appreciate any of the toes being woody or black. He is got good capillary refill of the digits. There are some mild onychomycosis General Extremety ED: Negative for edema General Extremity: Negative for edema Neuro oriented x3 and CN's II-XII intact bilaterally Sensorium / Orientation: alert Motor Exam: strength 5/5 throughout Psych mental status grossly normal Mood & Affect: Negative for depressed or tearful Skin no rashes or lesions noted and no wounds MDM MDM MDM Narrative Medical decision making narrative: Patient I believe has a mild frostbite. Would recommend avoidance of further damage over the next several days. Think he should make a good recovery return if worsening or concerns Noted that the patient is hypertensive. He has a history of this and has not been compliant with his medications. He has not had his Norvasc today I will give him a dose of that. He has not made follow-up appointments to obtain his prescriptions. I can write for a months worth but he will need to follow-up with cardiology. Discharge Plan Triage Chief Complaint: Lower Extremity Injury ED Provider: Don Coombs Dx/Rx/DC Orders Clinical Impression: Frostbite of toe Instructions: ED Frostbite Prescriptions: New amlodipine 10 mg tablet 10 mg PO DAILY Qty: 30 RF: 0 atenolol 50 mg tablet 100 mg PO DAILY Qty: 45 RF: 0 atorvastatin 80 mg tablet 80 mg PO DAILY Qty: 30 RF: 0 No Action atorvastatin 80 mg tablet 80 mg PO QHS Qty: 30 RF: 11 aspirin [Adult Low Dose Aspirin] 81 mg tablet,delayed release (DR/EC) 81 mg PO DAILY RF: 0 amlodipine 10 mg tablet See Rx Instructions .ROUTE .COMPLEX Qty: 90 RF: 3 atenolol 50 mg tablet 75 mg PO DAILY Qty: 135 RF: 3 Primary Care Provider: Care Physician,No Primary Referrals: Gene Liriano DPM [STAFF PHYSICIAN] - As Needed (if continued symptoms or concerns) Care Physician,No Primary [Primary Care Provider] - Disposition Disposition: Home, Self Care
[2021-09-18] MEDS: amLODIPine 10 MG Tablet PO (01:20)
[2021-09-18 01:22] VITALS: BP 203/120; PULSE 114; RESP 15; O2SAT 99
== END 2021-09-18 01:23 | disposition home or self-care (01) ==
LOC: ED 01:14
PROVIDERS: Emergency Provider Emergency Medicine; Visit Provider Emergency Medicine
DX: T33.831A Superficial frostbite of right toe(s), initial encounter (principal); F17.200 Nicotine dependence, unspecified, uncomplicated; I25.10 Atherosclerotic heart disease of native coronary artery without angina pectoris; I10 Essential (primary) hypertension; E78.2 Mixed hyperlipidemia; I25.2 Old myocardial infarction; Z95.5 Presence of coronary angioplasty implant and graft; Z79.899 Other long term (current) drug therapy; X58.XXXA Exposure to other specified factors, initial encounter
CPT/HCPCS: 99283

== ENCOUNTER 2022-03-15 16:22 | Emergency (ER) | payer MEDICAID, SELFPAY ==
[2022-03-15 16:23] VITALS: BP 183/119; PULSE 83; RESP 16; TEMP 36.4; O2SAT 97; BMI 25.2
--- NOTE | 2022-03-15 16:30 | RAD_ITS ---
STUDY: X-RAY - RIGHT RADIUS AND ULNA REASON FOR EXAM: Male, 51 years old. pain TECHNIQUE: 2 view(s) of the forearm. COMPARISON: None. FINDINGS: There is no demonstrated soft tissue swelling. Normal visualized radius. Normal visualized ulna. RAD/Forearm 2 Views IMPRESSION: Normal x-ray examination of the radius and ulna. Electronically Signed: Pedro Russell MD at 16:45 EDT ,
--- NOTE | 2022-03-15 16:53 | EX.ED.UPPERE ---
HPI History of Present Illness Chief Complaint: Upper Extremity Injury Narrative Narrative: 51-year-old male presenting with right mid forearm pain. He states he broke his wrist and forearm distantly. He states recently he banged this while he was working. He states at times it hurts and its right in the mid forearm where his fracture was. 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 He has not had any deformity, swelling, bruising. He states his wrist feels good. [facility] Medical History Atherosclerotic heart disease of [place] coronary artery without angina pectoris Chest pain at rest Essential hypertension Hypertension goal BP (blood pressure) < 130/80 Mixed hyperlipidemia Old myocardial infarction Presence of stent in coronary artery (~11/2014) Tobacco abuse Wheezing Home Medications atorvastatin 80 mg tablet 80 mg PO QHS #30 tabs 10/04/19 [Rx Last Taken Unknown] aspirin 81 mg tablet,delayed release (Adult Low Dose Aspirin) 81 mg PO DAILY 07/15/20 [History Last Taken Unknown] amlodipine 10 mg tablet See Rx Instructions .Route .COMPLEX #90 tabs 10/15/20 [Rx Last Taken Unknown] atenolol 50 mg tablet 75 mg PO DAILY #135 tabs 10/31/20 [Rx Last Taken Unknown] amlodipine 10 mg tablet 10 mg PO DAILY #30 tabs 09/18/21 [Rx Last Taken Unknown] atenolol 50 mg tablet 100 mg PO DAILY #45 tabs 09/18/21 [Rx Last Taken Unknown] atorvastatin 80 mg tablet 80 mg PO DAILY #30 tabs 09/18/21 [Rx Last Taken Unknown] Allergy/AdvReac Type Severity Reaction Status Date / Time No Known Allergies Allergy Verified 03/15/22 16:23 Family History Father Myocardial infarction CHF (congestive heart failure) Mother CHF (congestive heart failure) Surgical History Presence of coronary angioplasty implant and graft (~11/2014) Social History Smoking Status: Current every day smoker tobacco type: cigarettes alcohol intake: never substance use type: does not use caffeine: Yes Type: coffee Number of servings: 1 ROS ROS ED Constitutional Constitutional ED: Denies chills or fever(s) Eyes Eyes: Denies change in vision ENT ENT ED: Denies rhinorrhea Cardiovascular Cardiovascular: Denies chest pain or palpitations Respiratory/Chest Respiratory/Chest: Denies cough or dyspnea Gastrointestinal Gastrointestinal: Denies abdominal pain or constipation Genitourinary Genitourinary ED: Denies dysuria or hematuria Musculoskeletal Musculoskeletal: Reports other Details: Right forearm pain ; Denies back pain or myalgias Integumentary Denies abscess or Abrasions Neurologic Neurologic: Denies headache(s) or paresthesias Psychiatric Psychiatric: Denies anxiety or depression EXAM Physical Exam Const Vital Signs: 03/15/22 16:23 Temperature 97.6 F L Temperature Source Temporal Pulse Rate 83 Respiratory Rate 16 Blood Pressure 183/119 H Blood Pressure Mean 140 Pulse Ox 97 Oxygen Delivery Method Room Air Positive well nourished General Appearance ED: NAD HEENT Reports moist mucous membranes Eyes PERRL and EOMs intact bilaterally Resp normal respiratory effort Cardio regular rate and regular rhythm Extremity Extremity Narrative: Tenderness to palpation mid right forearm. There is no deformity. No bruising, swelling. Right forearm has full range of motion of pronation. Pain with flexion extend his elbow without difficulty. Right wrist is nontender to palpation. Right hand neurovascular intact brisk cap refill to all 5 fingers motor strength throughout the right upper extremity is 5/5. Neuro oriented x3 and CN's II-XII intact bilaterally Sensorium / Orientation: alert Psych mental status grossly normal MDM MDM MDM Narrative Medical decision making narrative: X-ray of the right forearm is obtained and on my interpretation is no acute fracture. In addition to bending the arm this is likely exacerbated by manual labor. Patient counseled to use compression for this. He states he will just use Tylenol and ibuprofen and does not want anything here. He states he just wanted to make sure he did not break it. Patient discharged home in stable condition. Impression: 1. Right forearm contusion Lab Data Attestation: I reviewed the patient's lab results. Radiography Diagnostic Testing: Clinical Impression(s) from Imaging Studies Forearm X-Ray 03/15/22 16:30 IMPRESSION: Normal x-ray examination of the radius and ulna. Electronically Signed: Pedro Russell MD at 16:45 EDT , Discharge Plan Triage Chief Complaint: Upper Extremity Injury ED Provider: Miguel Mack Dx/Rx/DC Orders Instructions: ED Contusion, Upper Extremity Prescriptions: No Action atorvastatin 80 mg tablet 80 mg PO QHS Qty: 30 11RF aspirin [Adult Low Dose Aspirin] 81 mg tablet,delayed release (DR/EC) 81 mg PO DAILY amlodipine 10 mg tablet 10 mg PO DAILY Qty: 30 0RF atenolol 50 mg tablet 100 mg PO DAILY Qty: 45 0RF atorvastatin 80 mg tablet 80 mg PO DAILY Qty: 30 0RF amlodipine 10 mg tablet See Rx Instructions .ROUTE .COMPLEX Qty: 90 3RF Dose Instruction: take 1 tablet by mouth once daily Rx Instructions: take 1 tablet by mouth once daily atenolol 50 mg tablet 75 mg PO DAILY Qty: 135 3RF Primary Care Provider: Care Physician,No Primary Referrals: Care Physician,No Primary [Primary Care Provider] - Disposition Disposition: Home, Self Care
== END 2022-03-15 17:15 | disposition home or self-care (01) ==
PROVIDERS: Emergency Provider Student in an Organized Health Care Education/Training Program; Visit Provider Student in an Organized Health Care Education/Training Program
DX: S50.11XA Contusion of right forearm, initial encounter (principal); I25.10 Atherosclerotic heart disease of native coronary artery without angina pectoris; I10 Essential (primary) hypertension; E78.2 Mixed hyperlipidemia; I25.2 Old myocardial infarction; F17.210 Nicotine dependence, cigarettes, uncomplicated; Z95.5 Presence of coronary angioplasty implant and graft; X58.XXXA Exposure to other specified factors, initial encounter
CPT/HCPCS: 73090; 99282

== ENCOUNTER 2022-05-22 12:10 | Emergency (ER) | payer MEDICAID, SELFPAY ==
[2022-05-22 12:11] VITALS: BP 187/123; PULSE 96; RESP 15; TEMP 36.4; O2SAT 98; BMI 24.2
--- NOTE | 2022-05-22 12:50 | EDS_ITS ---
HPI History of Present Illness Chief Complaint: Lower Extremity Injury Informant: patient Narrative Narrative: 51-year-old male presenting to the emergency department chief complaint of right great toe and leg pain. He states that 6 weeks ago he was rebuilding a porch. States he fell through the floor landed on the ground and injured his right leg and foot. He states that since that time he has had pain in the right great toe feeling like it is on fire and swollen. States he also has pain in the mid tibia. He went to urgent care and they were concerned about a DVT so they sent him to the emergency department. He denies any swelling. He denies any calf pain. He states he has not had any further injury to the leg. No recent breaks in the skin. No fevers. No rashes. He states that he was told he is a prediabetic. [facility] Medical History (Updated 05/22/22 @ 14:[address] Don Coombs DO) Atherosclerotic heart disease of [place] coronary artery without angina pectoris Chest pain at rest Essential hypertension Hypertension goal BP (blood pressure) < 130/80 Mixed hyperlipidemia Old myocardial infarction Presence of stent in coronary artery (~11/2014) Tobacco abuse Wheezing Home Medications atorvastatin 80 mg tablet 80 mg PO QHS #30 tabs 10/04/19 [Rx Last Taken Unknown] aspirin 81 mg tablet,delayed release (Adult Low Dose Aspirin) 81 mg PO DAILY 07/15/20 [History Last Taken Unknown] amlodipine 10 mg tablet See Rx Instructions .Route .COMPLEX #90 tabs 10/15/20 [Rx Last Taken Unknown] atenolol 50 mg tablet 75 mg PO DAILY #135 tabs 10/31/20 [Rx Last Taken Unknown] amlodipine 10 mg tablet 10 mg PO DAILY #30 tabs 09/18/21 [Rx Last Taken Unknown] atenolol 50 mg tablet 100 mg PO DAILY #45 tabs 09/18/21 [Rx Last Taken Unknown] atorvastatin 80 mg tablet 80 mg PO DAILY #30 tabs 09/18/21 [Rx Last Taken Unknown] Allergy/AdvReac Type Severity Reaction Status Date / Time No Known Allergies Allergy Verified 05/22/22 12:11 Family History Father Myocardial infarction CHF (congestive heart failure) Mother CHF (congestive heart failure) Surgical History Presence of coronary angioplasty implant and graft (~11/2014) Social History Smoking Status: Current every day smoker tobacco type: cigarettes alcohol intake: never substance use type: does not use caffeine: Yes Type: coffee Number of servings: 1 ROS ROS ED Constitutional Constitutional ED: Denies chills or weight loss Eyes Eyes: Denies change in vision or diplopia ENT ENT ED: Denies ear pain, rhinorrhea or sore throat Cardiovascular Cardiovascular: Denies chest pain, orthopnea, palpitations or racing heartbeat Respiratory/Chest Respiratory/Chest: Denies cough, dyspnea or orthopnea Gastrointestinal Gastrointestinal: Denies abdominal pain, diarrhea, nausea or vomiting Genitourinary Genitourinary ED: Denies dysuria, hematuria or urinary frequency Musculoskeletal Musculoskeletal: Reports other Details: See history of present illness ; Denies arthralgias or myalgias Integumentary Denies abscess or rash Neurologic Neurologic: Denies headache(s) or weakness Psychiatric Psychiatric: Denies anxiety, depression, suicidal ideation or suicidal thoughts Endocrine Endocrinology: Denies polydipsia, polyphagia or polyuria Allergic/Immunologic Allergic/Immunologic ED: Denies mouth swelling, tongue swelling or urticaria EXAM Physical Exam Const Vital Signs: 05/22/22 12:11 Temperature 97.5 F L Temperature Source Temporal Pulse Rate 96 Respiratory Rate 15 Blood Pressure 187/123 H Blood Pressure Mean 144 Pulse Ox 98 Oxygen Delivery Method Room Air Positive well nourished and well developed General Appearance ED: well developed HEENT Reports normocephalic, head/scalp atraumatic and moist mucous membranes Eyes PERRL and EOMs intact bilaterally Neck no lymphadenopathy, supple and no JVD Resp normal respiratory effort and clear to auscultation bilaterally Cardio regular rate, regular rhythm and no murmurs GI normal to inspection, nondistended, normoactive bowel sounds and non-tender Palpation: soft Back/Spine no CVA tenderness and normal ROM Extremity Extremity Narrative: Patient complains of tenderness to palpation along the first and second metatarsal. There is no swelling or erythema or increased warmth of the skin. The calf is soft nontender. He notes tenderness along the tibial shaft. No fibular head pain. He has no pain with dorsiflexion of the toes. General Extremety ED: Negative for edema General Extremity: Negative for edema Neuro oriented x3 and CN's II-XII intact bilaterally Sensorium / Orientation: alert Motor Exam: strength 5/5 throughout Psych mental status grossly normal Mood & Affect: Negative for depressed or tearful Skin no rashes or lesions noted and no wounds MDM MDM MDM Narrative Medical decision making narrative: Interpretation of the plain films of the foot x-rays is no acute fracture. My interpretation of the tibia and fibula x-rays are no acute fracture. Unfortunately the patient stated to nursing that he needed to get to work and is decided to leave the emergency department. I did not have the opportunity to exit interview him before he left due to high acuity. Lab Data Labs: Laboratory Results - last 24 hr 05/22/22 13:14 POC Glucose 125 H Radiography Diagnostic Testing: Clinical Impression(s) from Imaging Studies Foot X-Ray 05/22/22 12:50 IMPRESSION: Within normal limits x-ray examination of the foot. Electronically Signed: Ariella Hong MD at 13:11 EDT , Tibia/Fibula X-Ray 05/22/22 12:50 IMPRESSION: Normal x-ray examination of the tibia and fibula. Electronically Signed: Ariella Hong MD at 13:12 EDT , Discharge Plan Triage Chief Complaint: Lower Extremity Injury ED Provider: Don Coombs Dx/Rx/DC Orders Clinical Impression: Acute foot pain, Acute leg pain Prescriptions: No Action atorvastatin 80 mg tablet 80 mg PO QHS Qty: 30 11RF aspirin [Adult Low Dose Aspirin] 81 mg tablet,delayed release (DR/EC) 81 mg PO DAILY amlodipine 10 mg tablet 10 mg PO DAILY Qty: 30 0RF atenolol 50 mg tablet 100 mg PO DAILY Qty: 45 0RF atorvastatin 80 mg tablet 80 mg PO DAILY Qty: 30 0RF amlodipine 10 mg tablet See Rx Instructions .ROUTE .COMPLEX Qty: 90 3RF Dose Instruction: take 1 tablet by mouth once daily Rx Instructions: take 1 tablet by mouth once daily atenolol 50 mg tablet 75 mg PO DAILY Qty: 135 3RF Primary Care Provider: Care Physician,No Primary Referrals: Care Physician,No Primary [Primary Care Provider] - Disposition Disposition: Elopement
--- NOTE | 2022-05-22 12:50 | RAD_ITS ---
STUDY: X-RAY - RIGHT FOOT CLINICAL: Male, 51 years old. Injury and pain TECHNIQUE: 3 view(s) of the foot. COMPARISON: None. FINDINGS: Normal talus, calcaneus, and tarsal bones. Normal visualized subtalar, talonavicular, calcaneocuboid, tarsal and tarsometatarsal articulations. Normal metatarsi. Normal metatarsophalangeal joint of the great toe. Normal interphalangeal joint of the great toe. Normal phalanges of the great toe. Normal second through fifth metatarsophalangeal joints. Normal interphalangeal joints and phalanges of the lesser toes. The soft tissue structures are unremarkable. RAD/Foot min 3 Views IMPRESSION: Within normal limits x-ray examination of the foot. Electronically Signed: Ariella Hong MD at 13:11 EDT ,
--- NOTE | 2022-05-22 12:50 | RAD_ITS ---
STUDY: X-RAY - RIGHT TIBIA AND FIBULA REASON FOR EXAM: Male, 51 years old. Injury and pain TECHNIQUE: 4 view(s) of the tibia and fibula were obtained. COMPARISON: None. FINDINGS: Normal visualized tibia. Normal visualized fibula. The soft tissue structures are unremarkable. RAD/Tibia & Fibula 2 Views IMPRESSION: Normal x-ray examination of the tibia and fibula. Electronically Signed: Ariella Hong MD at 13:12 EDT ,
[2022-05-22 13:35] LABS: Bedside Glucose 125 mg/dL (74-106)
--- NOTE | 2022-05-22 14:52 | ED.RN ---
Patient started becoming agitated. This nurse updated the patient on status of xray results and attempted to take vital signs. Patient stated I can not be late for work and I will not wait for my results. I am leaving now. notified that patient left the ED.
== END 2022-05-22 14:55 | disposition left against medical advice (07) ==
PROVIDERS: Emergency Provider Emergency Medicine; Visit Provider Emergency Medicine
DX: M79.673 Pain in unspecified foot (principal); I25.10 Atherosclerotic heart disease of native coronary artery without angina pectoris; E78.2 Mixed hyperlipidemia; I10 Essential (primary) hypertension; M79.606 Pain in leg, unspecified
CPT/HCPCS: 99281 ×2; 73590; 73630; 82962; 99282

== ENCOUNTER 2023-03-18 15:14 | Emergency (ER) | payer MEDICAID, SELFPAY ==
[2023-03-18 15:16] VITALS: BP 166/122; PULSE 99; RESP 14; TEMP 36.1; O2SAT 99; BMI 29.4
--- NOTE | 2023-03-18 15:33 | EX.ED.DYSGE1 ---
HPI History of Present Illness Chief Complaint: Overdose Informant: patient Onset/Context/Timing Onset: Today Current Severity: Mild Maximum Severity: Severe Narrative Narrative: 52-year-old male history of prior [place], CAD, stent, hypertension. Says I do not know what happened. Reportedly girlfriend called the squad. Squad arrived patient had decreased mental status. He was given Narcan x2 intranasally and then 1 IV. Reportedly woke up. Patient says he does not know what happened. He does not admit to any type of overdose or current drug use. He denies any complaints such as headache, chest pain, shortness of breath or abdominal pain. He denies any recent hospitalization. Prior similar symptoms: No Recent Illness/Hospitalization: No [facility] Medical History (Updated 03/18/23 @ 16:[address] Jose Proctor MD) Atherosclerotic heart disease of [place] coronary artery without angina pectoris Chest pain at rest Essential hypertension Hypertension goal BP (blood pressure) < 130/80 Mixed hyperlipidemia Old myocardial infarction Presence of stent in coronary artery (~11/2014) Tobacco abuse Wheezing Home Medications atorvastatin 80 mg tablet 80 mg PO QHS #30 tabs 10/04/19 [Rx Last Taken Unknown] aspirin 81 mg tablet,delayed release (Adult Low Dose Aspirin) 81 mg PO DAILY 07/15/20 [History Last Taken Unknown] amlodipine 10 mg tablet See Rx Instructions .Route .COMPLEX #90 tabs 10/15/20 [Rx Last Taken Unknown] atenolol 50 mg tablet 75 mg (1.5 x 50 mg) PO DAILY #135 tabs 10/31/20 [Rx Last Taken Unknown] amlodipine 10 mg tablet 10 mg PO DAILY #30 tabs 09/18/21 [Rx Last Taken Unknown] atenolol 50 mg tablet 100 mg (2 x 50 mg) PO DAILY #45 tabs 09/18/21 [Rx Last Taken Unknown] atorvastatin 80 mg tablet 80 mg PO DAILY #30 tabs 09/18/21 [Rx Last Taken Unknown] atenolol 50 mg tablet 50 mg PO DAILY 30 days #30 tabs 03/18/23 [Rx Last Taken Unknown] Allergy/AdvReac Type Severity Reaction Status Date / Time No Known Allergies Allergy Verified 03/18/23 15:19 Family History Father Myocardial infarction CHF (congestive heart failure) Mother CHF (congestive heart failure) Surgical History Presence of coronary angioplasty implant and graft (~11/2014) Social History Smoking Status: Current every day smoker tobacco type: cigarettes alcohol intake: never substance use type: does not use caffeine: Yes Type: coffee Number of servings: 1 ROS ROS ED ROS Narrative Denies recent illness. Denies complaints. Amnestic to what ever happened or at least for admit to it. Review of Systems ROS Unobtainable: Denies due to encephalopathy Constitutional Constitutional ED: Denies chills or fever(s) Eyes Eyes: Denies blurry vision ENT ENT ED: Denies ear pain Cardiovascular Cardiovascular: Denies chest pain Respiratory/Chest Respiratory/Chest: Denies cough Gastrointestinal Gastrointestinal: Denies abdominal pain Genitourinary Genitourinary ED: Denies dysuria Musculoskeletal Musculoskeletal: Denies arthralgias Integumentary Denies abscess Neurologic Neurologic: Denies headache(s) Psychiatric Psychiatric: Denies anxiety Endocrine Endocrinology: Denies cold intolerance Hematologic/Lymphatic Hematologic/Lymphatic: Reports none Allergic/Immunologic Allergic/Immunologic ED: Denies mouth swelling, tongue swelling or urticaria EXAM Physical Exam Narrative Exam Narrative: 52-year-old male no acute distress vital signs stable and his blood pressure is elevated 166/122. Pulse ox 99% on room air no hypoxia. No family or friends are present in the room. HEENT exam unremarkable atraumatic. Pupils round reactive light. Normal speech. Neck nontender no lymphadenopathy. Lungs clear to auscultation. Heart regular rhythm rate about 95 no murmur. Chest wall and ribs nontender. Abdomen soft nontender. Moving all 4 extremities. Neurologically he is awake and alert. He is amnestic to what ever happened which is a suspected unintentional drug overdose. But is unknown. He is answering questions and following commands. Const Vital Signs: 03/18/23 15:16 03/18/23 16:59 Temperature 97 F L Temperature Source Temporal Pulse Rate 99 93 Respiratory Rate 14 16 Blood Pressure 166/122 H 153/113 H Blood Pressure Mean 136 126 Pulse Ox 99 95 Oxygen Delivery Method Room Air Room Air Positive well nourished and well developed; Negative for cachectic, contractures or unkempt General Appearance ED: well developed and NAD; Negative for unkempt, cachectic, contractures, cyanotic, diaphoretic or pallor Nutritional Appearance: Negative for cachectic HEENT Reports moist mucous membranes; Denies dry mucous membranes Negative for trauma or tenderness Mouth ED: No dry mucous membranes Mouth: No dry mucous membranes Eyes PERRL and EOMs intact bilaterally General Eye ED: Negative for pale conjunctiva or scleral icterus Neck no lymphadenopathy, supple and no JVD General: Negative for tenderness Lymph Lymphatic: Negative for other Chest Wall inspection of chest normal and palpation of chest normal Chest: Negative for other Resp normal respiratory effort and clear to auscultation bilaterally Effort and Inspection: Negative for retractions Auscultation: Negative for rales, rhonchi or wheezes Cardio regular rate, regular rhythm, S1 normal heart sound, S2 normal heart sound and no murmurs Palpation: Negative for palpable S3 Rate: Negative for bradycardia or tachycardic Rhythm: Negative for abnormal rhythm GI normal to inspection, nondistended, normoactive bowel sounds, non-tender, non-distended and no masses Inspection: Negative for abdominal distention Auscultation: normoactive bowel sounds Palpation: soft; Negative for tender or guarding Back/Spine no CVA tenderness General Back: Negative for CVA tenderness Cervical Spine: Negative for cervical spine tenderness Thoracic Spine / Upper Back: Negative for thoracic spinal tenderness Lumbar Spine / Lower Back: Negative for lumbar spinal tenderness Extremity normal to inspection Extremity Narrative: No track cuellar in his upper extremities. General Extremety ED: Negative for edema or tenderness General Extremity: Negative for edema Neuro oriented x3 and CN's II-XII intact bilaterally Sensorium / Orientation: alert; Negative for orientation impaired, lethargic or stuporous Sensory Exam: No sensory level loss detected Motor Exam: strength 5/5 throughout; Negative for general weakness or strength abnormal Psych mental status grossly normal Appearance: Negative for unkempt Attitude: No agitated Mood & Affect: Negative for depressed, anxious or tearful Skin no rashes or lesions noted, no wounds and skin turgor normal General Skin Exam: elasticity normal; Negative for jaundice or pallor Lesions: No lesion noted Rashes: No rashes noted Trauma: Negative for abrasion Wounds: Negative for wounds noted MDM MDM MDM Narrative Medical decision making narrative: 52-year-old male in which paramedics were called he was given Narcan and awoke. Suspected drug overdose but patient either will admit or actually does not remember what happened. I will try to speak to his girlfriend if able. She is currently not available. His exam is benign. He has no complaints and he cannot member what happened. Screening labs and EKG will be obtained. Nurse spoke to a female friend that is not his girlfriend patient has a history of heroin abuse. She is never seen him use. She was another part of the home when she came up she saw him what she thought was sleeping but he was unarousable and seem to be snoring. She called the squad and they are the ones again the Narcan. She cannot confirm nor deny that this was a drug overdose. She did not specifically witness any drug use. Repeat exam at 4:50 PM patient doing well. He is feeling better. Still does not exactly member what happened. He is walking to the restroom. His neurologic exam is normal. His blood pressure is elevated. He typically is on atenolol for hypertension. States he has been out of it for weeks. He takes 50 mg once a day. I will give him a dose here and write him a new prescription. He is instructed to follow-up with his primary care physician. History & Record Review Discussion w/independent historian: Patient Lab Data Attestation: I reviewed the patient's lab results. Lab results narrative: CBC unremarkable. White count of 9.9. H&H is 15 and 46. Platelets 206. Electrolytes show a gap 5. Normal BUN and creatinine 24 and 1.38. Glucose 227. Liver enzymes are unremarkable. Labs: Laboratory Results - last 24 hr 03/18/23 15:45 WBC 9.9 RBC 4.93 Hgb 15.0 Hct 46.0 MCV 93.3 MCH 30.4 MCHC 32.6 RDW Std Deviation 42.9 RDW Coeff of [place] 12.5 Plt Count 206 MPV 9.7 Immature Gran % (Auto) 0.400 Neut % (Auto) 78.7 H Lymph % (Auto) 12.1 L Bow[place] % (Auto) 7.3 Eos % (Auto) 0.9 Baso % (Auto) 0.6 Absolute Neuts (auto) 7.8 H Absolute Lymphs (auto) 1.20 Nucleated RBC % 0 Sodium 139 Potassium 3.6 Chloride 105 Carbon Dioxide 29.0 Anion Gap 5 BUN 24 H Creatinine 1.38 H Estim Creat Clear Calc 71.57 Est GFR (MDRD) Af Amer 70 Est GFR (MDRD) Non-Af 58 L BUN/Creatinine Ratio 17.4 Glucose 227 H Calcium 8.5 Total Bilirubin 0.30 AST 24 ALT 29 Alkaline Phosphatase 101 Total Protein 7.8 Albumin 3.7 Globulin 4.1 Albumin/Globulin Ratio 0.9 Rhythm Strip Rhythm Strip: Sinus Rhythm Rate: 96 Ectopy: None EKG Initial EKG: Attestation: I personally reviewed and interpreted this EKG as follows: Interpretation: Sinus Rhythm and No Acute Injury Pattern Comments: Normal sinus rhythm rate of 96 no acute signs of [place] or ischemia. Unremarkable EKG. Discharge Plan Triage Chief Complaint: Overdose ED Provider: Jose Proctor Dx/Rx/DC Orders Clinical Impression: History of heroin abuse, Accidental drug overdose, Medical non-compliance, Chronic hypertension Instructions: ED Drug Abuse, ED High Blood Pressure Hypertension Prescriptions: New atenolol 50 mg tablet 50 mg PO DAILY 30 Days Qty: 30 0RF No Action atorvastatin 80 mg tablet 80 mg PO QHS Qty: 30 11RF aspirin [Adult Low Dose Aspirin] 81 mg tablet,delayed release (DR/EC) 81 mg PO DAILY amlodipine 10 mg tablet 10 mg PO DAILY Qty: 30 0RF atenolol 50 mg tablet 100 mg PO DAILY Qty: 45 0RF atorvastatin 80 mg tablet 80 mg PO DAILY Qty: 30 0RF amlodipine 10 mg tablet See Rx Instructions .ROUTE .COMPLEX Qty: 90 3RF Dose Instruction: take 1 tablet by mouth once daily Rx Instructions: take 1 tablet by mouth once daily atenolol 50 mg tablet 75 mg PO DAILY Qty: 135 3RF Primary Care Provider: [facility] Sandi Garvey Referrals: [facility] Sandi Garvey [Primary Care Provider] - As soon as possible Activity Restrictions/Additional Instructions: Make sure you get your blood pressure medication refilled begin taking it as prescribed. If you do not take your blood pressure medications you could have a stroke, heart attack or kidney damage. Follow-up with your doctor. Disposition Disposition: Home, Self Care
[2023-03-18 15:55] LABS: Absolute Neutrophil Count 7.8 X10^3/uL (2.0-7.7); Basophil# 0.06 X10^3/uL; Basophil% 0.6 % (0-1); Eosinophil# 0.09 X10^3/uL; Eosinophils% 0.9 % (0-5); Lymphocyte % 12.1 % (19-41); Mean Corp Hgb Conc 32.6 g/dL (32-36); Mean Corpuscular Hgb 30.4 pg (27.0-32.0); Mean Corpuscular Volume 93.3 fL (80-94); Mean Platelet Vol. 9.7 fl (6.2-12.0); Monocyte# 0.72 X10^3/uL; Monocyte% 7.3 % (0-10); NRBC Flagged by Analyzer 0 % (0-5); Neutrophil # 7.81 X10^3/uL (2.7-7.7); Neutrophil % 78.7 % (47-70); Platelet Count 206 K/mm3 (150-450); RBC Distribution Width CV 12.5 % (11.6-14.6); RBC Distribution Width SD 42.9 fl (35.1-43.9); Red Blood Count 4.93 M/mm3 (4.6-6.2); White Blood Count 9.9 K/mm3 (4.4-11.0)
[2023-03-18] MEDS: Ondansetron 4 MG/2 ML Vial IV (16:08)
[2023-03-18 16:12] LABS: ALB/GLOB Ratio 0.9 RATIO (0.9-2.4); AST(SGOT) 24 U/L (15-37); Alanine Aminotransfer ALT/SGPT 29 U/L (16-61); Albumin, Serum 3.7 g/dL (3.2-5.0); Alkaline Phosphatase 101 U/L (45-117); Anion Gap 5 (5-15); BUN 24 mg/dL (7-18); BUN/Creat Ratio 17.4 RATIO (10-20); Calcium,Total 8.5 mg/dL (8.5-10.1); Chloride 105 mmol/L (98-107); Creatinine, Serum 1.38 mg/dL (0.70-1.30); EST Glomerular Filtration Rate 58 mL/min (>60); Est Glom Filt Rate - Afr Amer 70 mL/min (>60); Estimated Creatinine Clearance 71.57 ml/min; Globulin 4.1 g/dL (2.2-4.2); Glucose 227 mg/dL (74-106); Potassium 3.6 mmol/L (3.5-5.1); Protein, Total 7.8 g/dL (6.4-8.2); Sodium Level 139 mmol/L (136-145)
[2023-03-18 16:59] VITALS: BP 153/113; PULSE 93; RESP 16; O2SAT 95
[2023-03-18 17:15] VITALS: BP 153/113
[2023-03-18] MEDS: Atenolol 50 MG Tablet PO (17:16)
== END 2023-03-18 17:17 | disposition home or self-care (01) ==
PROVIDERS: Emergency Provider Emergency Medicine; Visit Provider Emergency Medicine
DX: T50.901A Poisoning by unspecified drugs, medicaments and biological substances, accidental (unintentional), initial encounter (principal); F11.10 Opioid abuse, uncomplicated; I25.10 Atherosclerotic heart disease of native coronary artery without angina pectoris; I10 Essential (primary) hypertension; E78.2 Mixed hyperlipidemia; I25.2 Old myocardial infarction; Z79.899 Other long term (current) drug therapy; Z79.82 Long term (current) use of aspirin; Z95.5 Presence of coronary angioplasty implant and graft; F17.210 Nicotine dependence, cigarettes, uncomplicated; Z91.199 Patient's noncompliance with other medical treatment and regimen due to unspecified reason
CPT/HCPCS: 80053; 85025; 93005; 96374; 99285; A4216; J2405

== ENCOUNTER 2023-06-25 14:03 | Emergency (ER) | payer SELFPAY ==
[2023-06-25 14:05] VITALS: BP 174/118; PULSE 82; RESP 12; TEMP 36.9; O2SAT 97; BMI 26.1
--- NOTE | 2023-06-25 14:31 | EX.ED.DYSGE1 ---
HPI History of Present Illness Chief Complaint: Overdose Informant: patient and EMS Narrative Narrative: 52-year-old male presenting to the emergency department chief complaint of overdose. Patient reportedly was at [facility] and went unresponsive. He was administered Narcan is now awake. He states that he has been drifting for some time. He is currently in the [place] area staying with a friend. He is trying to get his car fixed. He states he has been having a hard time this week dealing with stress and snorted some powder that someone had given him. He states he is not a drug addict does not use drugs frequently but has in the past. He states that he is embarrassed by what happened. He notes that he is out of Norvasc 10 mg and needs to get some more. He has a history of coronary artery disease. He states his doctors are in [place]. [facility] Medical History (Updated 06/25/23 @ 14:[address] Don Coombs DO) Atherosclerotic heart disease of [place] coronary artery without angina pectoris Chest pain at rest Essential hypertension Hypertension goal BP (blood pressure) < 130/80 Mixed hyperlipidemia Old myocardial infarction Presence of stent in coronary artery (~11/2014) Tobacco abuse Wheezing Home Medications atorvastatin 80 mg tablet 80 mg PO QHS #30 tabs 10/04/19 [Rx Last Taken Unknown] amlodipine 10 mg tablet See Rx Instructions .Route .COMPLEX #90 tabs 10/15/20 [Rx Last Taken Unknown] amlodipine 10 mg tablet 10 mg PO DAILY #30 tabs 09/18/21 [Rx Last Taken Unknown] atenolol 50 mg tablet 50 mg PO DAILY 30 days #30 tabs 03/18/23 [Rx Last Taken Unknown] amlodipine 10 mg tablet (Norvasc) 10 mg PO DAILY #30 tabs 06/25/23 [Rx Last Taken Unknown] Allergy/AdvReac Type Severity Reaction Status Date / Time No Known Allergies Allergy Verified 06/25/23 14:04 Family History Father Myocardial infarction CHF (congestive heart failure) Mother CHF (congestive heart failure) Surgical History Presence of coronary angioplasty implant and graft (~11/2014) Social History Smoking Status: Current every day smoker tobacco type: cigarettes alcohol intake: never substance use type: does not use caffeine: Yes Type: coffee Number of servings: 1 ROS ROS ED Constitutional Constitutional ED: Denies chills or weight loss Eyes Eyes: Denies change in vision or diplopia ENT ENT ED: Denies ear pain, rhinorrhea or sore throat Cardiovascular Cardiovascular: Denies chest pain, orthopnea, palpitations or racing heartbeat Respiratory/Chest Respiratory/Chest: Denies cough, dyspnea or orthopnea Gastrointestinal Gastrointestinal: Denies abdominal pain, diarrhea, nausea or vomiting Genitourinary Genitourinary ED: Denies dysuria, hematuria or urinary frequency Musculoskeletal Musculoskeletal: Denies arthralgias or myalgias Integumentary Denies abscess or rash Neurologic Neurologic: Denies headache(s) or weakness Psychiatric Psychiatric: Reports depression; Denies anxiety, suicidal ideation or suicidal thoughts Endocrine Endocrinology: Denies polydipsia, polyphagia or polyuria Allergic/Immunologic Allergic/Immunologic ED: Denies mouth swelling, tongue swelling or urticaria EXAM Physical Exam Const Vital Signs: 06/25/23 14:05 Temperature 98.5 F Temperature Source Temporal Pulse Rate 82 Respiratory Rate 12 Blood Pressure 174/118 H Blood Pressure Mean 136 Pulse Ox 97 Oxygen Delivery Method Room Air Positive well nourished and well developed General Appearance ED: well developed HEENT Reports normocephalic, head/scalp atraumatic and moist mucous membranes Eyes PERRL and EOMs intact bilaterally Neck no lymphadenopathy, supple and no JVD Resp normal respiratory effort and clear to auscultation bilaterally Cardio regular rate, regular rhythm and no murmurs GI normal to inspection, nondistended, normoactive bowel sounds and non-tender Palpation: soft Back/Spine no CVA tenderness and normal ROM Extremity normal to inspection General Extremety ED: Negative for edema General Extremity: Negative for edema Neuro oriented x3 and CN's II-XII intact bilaterally Sensorium / Orientation: alert Motor Exam: strength 5/5 throughout Psych mental status grossly normal Mood & Affect: tearful; Negative for depressed or anxious Skin no rashes or lesions noted and no wounds MDM MDM MDM Narrative Medical decision making narrative: Patient will be observed. I can write for some Norvasc. [facility] if he plans to stay in town for a while. Discharge Plan Triage Chief Complaint: Overdose ED Provider: Don Coombs Dx/Rx/DC Orders Clinical Impression: Essential hypertension, Opiate overdose Instructions: ED Drug Abuse Prescriptions: New amlodipine [Norvasc] 10 mg tablet 10 mg PO DAILY Qty: 30 0RF No Action atorvastatin 80 mg tablet 80 mg PO QHS Qty: 30 11RF Patient Comments: pt has not had a refill in over a month amlodipine 10 mg tablet 10 mg PO DAILY Qty: 30 0RF atenolol 50 mg tablet 50 mg PO DAILY 30 Days Qty: 30 0RF amlodipine 10 mg tablet See Rx Instructions .ROUTE .COMPLEX Qty: 90 3RF Dose Instruction: take 1 tablet by mouth once daily Patient Comments: pt has not had a refill in over a month Rx Instructions: take 1 tablet by mouth once daily Primary Care Provider: Sandi Bettencourt Referrals: [facility] Sandi Garvey [Primary Care Provider] - As soon as possible Disposition Disposition: Home, Self Care
[2023-06-25 15:08] VITALS: PULSE 78; RESP 18; O2SAT 100
== END 2023-06-25 15:11 | disposition home or self-care (01) ==
LOC: ED 14:42
PROVIDERS: Emergency Provider Emergency Medicine; Visit Provider Emergency Medicine
DX: T40.2X4A Poisoning by other opioids, undetermined, initial encounter (principal); I25.10 Atherosclerotic heart disease of native coronary artery without angina pectoris; E78.2 Mixed hyperlipidemia; I10 Essential (primary) hypertension; I25.2 Old myocardial infarction; Z79.899 Other long term (current) drug therapy; Z95.5 Presence of coronary angioplasty implant and graft; F17.210 Nicotine dependence, cigarettes, uncomplicated
CPT/HCPCS: 99284

== ENCOUNTER 2023-07-15 14:40 | Emergency (ER) | payer SELFPAY ==
[2023-07-15] VITALS (7 sets, daily range): BP systolic 115–154; BP diastolic 89–108; PULSE 90–123; RESP 12–28; TEMP 36.6; O2SAT 93–99; BMI 31.4
--- NOTE | 2023-07-15 14:46 | RAD_ITS ---
INDICATION: Tachypnea EXAMINATION/TECHNIQUE: X-RAY - portable upright AP chest x-ray COMPARISON: 05/11/2017 FINDINGS: LINES/DEVICES: None. LUNGS: No consolidation, edema or effusion. No pneumothorax. MEDIASTINUM AND CARDIOVASCULAR STRUCTURES: Cardiac silhouette stable within upper normal limits. BONES AND SOFT TISSUES: No acute changes. RAD/Chest 1 View (Portable) IMPRESSION: No radiographic evidence of acute cardiopulmonary disease. Electronically Signed: Nate Baldwin MD at 16:14 EST ,
--- NOTE | 2023-07-15 14:47 | EKG12_ITS ---
Test Reason : OVERDOSE Blood Pressure : / mmHG Vent. Rate : 110 BPM Atrial Rate : 110 BPM P-R Int : 148 ms QRS Dur : 100 ms QT Int : 362 ms P-R-T Axes : 068 -38 008 degrees QTc Int : 489 ms Sinus tachycardia Biatrial enlargement Left axis deviation Minimal voltage criteria for LVH, may be normal variant ( Horacio product ) Inferior infarct , age undetermined Abnormal ECG Confirmed by TIFFANY PAYNE, ALONSO ([id number]), research editor GINA MARTINO ([id number]) on 07/20/2023 12:32:32 PM Referred By: ALEX Confirmed By:ALONSO ALLEN MD
[2023-07-15 15:10] LABS: Absolute Lymphocyte Count 0.42 X10^3/uL (0.83-4.51); Absolute Neutrophil Count 11.3 X10^3/uL (2.0-7.7); Basophil# 0.03 X10^3/uL; Basophil% 0.2 % (0-1); Hematocrit 44.4 % (40-54); Lymphocyte # 0.42 X10^3/ul (0.83-4.51); Lymphocyte % 3.4 % (19-41); Mean Corp Hgb Conc 31.5 g/dL (32-36); Mean Corpuscular Volume 95.3 fL (80-94); Mean Platelet Vol. 9.8 fl (6.2-12.0); Monocyte# 0.52 X10^3/uL; Monocyte% 4.2 % (0-10); NRBC Flagged by Analyzer 0 % (0-5); Neutrophil # 11.26 X10^3/uL (2.7-7.7); Neutrophil % 91.7 % (47-70); POSITIVE DIFFERENTIAL YES; Platelet Count 204 K/mm3 (150-450); RBC Distribution Width CV 12.8 % (11.6-14.6); RBC Distribution Width SD 44.9 fl (35.1-43.9); Red Blood Count 4.66 M/mm3 (4.6-6.2); White Blood Count 12.3 K/mm3 (4.4-11.0)
[2023-07-15 15:11] LABS: Differential Indicated SCAN CRITERIA MET
--- NOTE | 2023-07-15 15:16 | CT_ITS ---
STUDY: CT BRAIN WITHOUT CONTRAST REASON FOR EXAM: Male, 52 years old. Pinpoint pupils, depressed level of consciousness RADIATION DOSAGE (If Supplied By Facility): CTDIvol = ( 47.06 ) mGy, DLP = ( 943.26 ) mGycm TECHNIQUE: Transaxial CT imaging of the brain was performed without administration of intravenous contrast material. Individualized dose optimization techniques were used for this CT. COMPARISON: No relevant priors. FINDINGS: Normal soft tissue structures. Normal calvarium. Decreased size of the ventricles. Decreased density of the white matter in both cerebral hemispheres. Element of brain ischemia should BE ruled out. Normal basal ganglia and thalami. Normal brainstem. Normal cerebellum. There is no intracranial hemorrhage. There are no findings of an acute ischemic infarction. Normal visualized paranasal sinuses. CT/Brain/Head without Contrast IMPRESSION: Small bilateral lateral ventricles with decreased attenuation in the white matter of both cerebral hemispheres. Element of brain ischemia should BE ruled out. Electronically Signed: Ranjith Turner MD at 15:31 EST ,
[2023-07-15 15:28] LABS: AST(SGOT) 40 U/L (15-37); Alanine Aminotransfer ALT/SGPT 48 U/L (16-61); Albumin, Serum 3.7 g/dL (3.2-5.0); Alkaline Phosphatase 111 U/L (45-117); Anion Gap 13 (5-15); BUN 32 mg/dL (7-18); BUN/Creat Ratio 15.4 RATIO (10-20); Calcium,Total 8.8 mg/dL (8.5-10.1); Chloride 103 mmol/L (98-107); Creatinine, Serum 2.08 mg/dL (0.70-1.30); EST Glomerular Filtration Rate 36 mL/min (>60); Est Glom Filt Rate - Afr Amer 43 mL/min (>60); Estimated Creatinine Clearance 43.38 ml/min; Globulin 3.8 g/dL (2.2-4.2); Glucose 195 mg/dL (74-106); Potassium 5.4 mmol/L (3.5-5.1); Protein, Total 7.5 g/dL (6.4-8.2); Sodium Level 138 mmol/L (136-145)
[2023-07-15 15:42] LABS: Mucous, Urine 0 SEEN /hpf (<or=2+); Squamous Epithelial Cells - UA 0 SEEN /hpf (0-5)
[2023-07-15 15:46] LABS: Color, Urine Yellow (Yellow); Glucose, Dipstick 100 mg/dl (Normal); Ketone-Dipstick 5 mg/dl (Negative); Leukocyte Esterase-Dipstick Negative /ul (Negative); Nitrite-Dipstick Negative (Negative); Occult Blood-Urine 25 /ul (Negative); Protein-Dipstick 30 mg/dl (Negative); Urine Bilirubin Dipstick Negative (Negative); Urine Clarity Clear (Clear); Urine Urobilinogen Normal (Normal)
[2023-07-15 15:51] LABS: Lactic Acid 7.4 mmol/L (0.4-1.9)
[2023-07-15 15:53] LABS: Blood Gas Specimen Type VEN; O2 Delivery Device Not entered; SITE Not entered; VBG BASE EXCESS -5 mmol/L (-1.0-3.5); VBG Bicarbonate 22 mmol/L (22-26); VBG PO2 52 mmHg (25-40); VBG SO2 82 % (50-70); VBG TCO2 23 mmol/L (23-33); VBG pCO2 43.6 mmHg (41-51)
--- NOTE | 2023-07-15 15:53 | MRI_ITS ---
STUDY: MRI BRAIN WITHOUT CONTRAST REASON FOR EXAM: Male, 52 years old. Possible ischemic changes noted on CT scan TECHNIQUE: Multiplanar multisequence imaging of the brain was performed without the administration of intravenous contrast. COMPARISON: Noncontrast head CT same date FINDINGS: The ventricles, cisterns, and sulci are within normal limits for patients age. There is no restricted diffusion to suggest acute ischemia or infarction. No succeptibility artifict to suggest intracranial hemorrhage or mineralization. Major intracranial signal voids are preserved. There is no midline shift, mass effect, or extra axial fluid collections are seen. No CP angle or IAC mass is seen. The orbits are unremarkable. The sella turcica and craniovertebral junction are within normal limits. The visualized paranasal sinuses are clear. The mastoid air cells are clear. MRI/Brain without Contrast IMPRESSION: No intracranial hemorrhage, acute infarct, or space occupying lesion seen on this noncontrast MRI of the brain. Electronically Signed: Nate Baldwin MD at 18:28 EST ,
--- NOTE | 2023-07-15 15:54 | EDS_ITS ---
HPI History of Present Illness Chief Complaint: Overdose Detail of Chief Complaint: Unknown ingestion Informant: EMS Onset/Context/Timing Onset: - (Unknown) Context: - (Presumed acute) Timing: Continuous Quality: Patient is unresponsive with pinpoint pupils Location: Presented from residence Worsened by: To determine since GCS is Narrative Narrative: Patient's roommate called for unresponsiveness. Per paramedics there was concern for overdose. He apparently awoke briefly after Narcan. When I entered the room patient was not awake had a GCS of 4 and has pinpoint pupils with a respiratory rate of 28. Prior similar symptoms: No Recent Illness/Hospitalization: No [facility] Medical History (Updated 07/15/23 @ 18:[address] Nahum Baeza MD) Atherosclerotic heart disease of [place] coronary artery without angina pectoris Chest pain at rest Essential hypertension Hypertension goal BP (blood pressure) < 130/80 Mixed hyperlipidemia Old myocardial infarction Presence of stent in coronary artery (~11/2014) Tobacco abuse Wheezing Home Medications atorvastatin 80 mg tablet 80 mg PO QHS #30 tabs 10/04/19 [Rx Last Taken Unknown] amlodipine 10 mg tablet See Rx Instructions .Route .COMPLEX #90 tabs 10/15/20 [Rx Last Taken Unknown] amlodipine 10 mg tablet 10 mg PO DAILY #30 tabs 09/18/21 [Rx Last Taken Unknown] atenolol 50 mg tablet 50 mg PO DAILY 30 days #30 tabs 03/18/23 [Rx Last Taken Unknown] amlodipine 10 mg tablet (Norvasc) 10 mg PO DAILY #30 tabs 06/25/23 [Rx Last Taken Unknown] Allergy/AdvReac Type Severity Reaction Status Date / Time No Known Allergies Allergy Verified 06/25/23 14:04 Family History Father Myocardial infarction CHF (congestive heart failure) Mother CHF (congestive heart failure) Surgical History Presence of coronary angioplasty implant and graft (~11/2014) Social History Smoking Status: Current every day smoker tobacco type: cigarettes alcohol intake: never substance use type: does not use caffeine: Yes Type: coffee Number of servings: 1 ROS ROS ED Review of Systems ROS Unobtainable: due to mental status EXAM Physical Exam Const Vital Signs: 07/15/23 14:41 07/15/23 15:44 07/15/23 16:10 Temperature 97.9 F Temperature Source Axillary Pulse Rate 123 H 107 H 105 H Respiratory Rate 28 H 16 18 Blood Pressure 146/93 H 136/98 H 136/98 H Blood Pressure Mean 110 110 110 Pulse Ox 98 98 98 Oxygen Delivery Method Nasal Cannula Nasal Cannula Oxygen Flow Rate (L/min) 2 3 2 07/15/23 16:30 07/15/23 18:00 Temperature Temperature Source Pulse Rate 101 H 97 Respiratory Rate 16 16 Blood Pressure 128/89 H 115/98 H Blood Pressure Mean 102 103 Pulse Ox 99 99 Oxygen Delivery Method Room Air Room Air Oxygen Flow Rate (L/min) Negative for well nourished or well developed General Appearance ED: NAD; Negative for well developed or pallor HEENT HEENT Narrative: Pressure sore noted over the right maxillary region. There are skin lesions on his scalp which is most likely due to the fact that he cuts his hair with a razor. normocephalic; Negative for atraumatic or cyanosis of lips/distal nose Eyes Eyes Narrative: Pinpoint. Patient does not have a startle response or little less response. General Eye ED: Negative for pale conjunctiva or scleral icterus Neck no lymphadenopathy, supple and no JVD Chest Wall Chest Narrative: Wall appears unremarkable. There is no crepitus or subcutaneous air. Resp Resp Narrative: Breath sounds are normal. Patient is breathing rapidly. Cardio regular rhythm, S1 normal heart sound, S2 normal heart sound and no murmurs Rate: tachycardic GI non-tender, non-distended and no masses GI Narrative: No pulsatile or palpable mass. There is no abdominal bruit. Auscultation: hypoactive bowel sounds Palpation: soft Back/Spine no CVA tenderness Back/Spine Narrative: Section the back is unremarkable. Neuro No oriented x3 Neuro Narrative: Eyes: 1 Verbal: 2 Motor 1 Sensorium / Orientation: Negative for alert Speech: Negative for speech normal Gait (Neuro): Negative for normal gait Psych Psych Narrative: Able to determine. Skin Skin Narrative: No track cuellar noted. General Skin Exam: Negative for jaundice or pallor MDM MDM MDM Narrative Medical decision making narrative: Diagnosis includes intracranial bleed i.e. subdural, epidural, traumatic subarachnoid hemorrhage, spontaneous hemorrhage subarachnoid hemorrhage and intraparenchymal bleed or contusion. This may also be due to drug effect. CT of the head was obtained and reveals abnormalities. Based on the patient's presentation and abnormalities an MRI was ordered. Lactate elevated 7.4. Since there is concerned that he may have rhabdomyolysis will obtain CPK. UA is not accurate to rule out rhabdomyolysis. Patient does have evidence of renal failure with elevated creatinine of 2.08. He also has mild hyperkalemia. Lab Data Attestation: I reviewed the patient's lab results. Lab results narrative: White count is elevated 12.3 with shift. There is no bandemia. H&H well. Comprehensive metabolic panel reveals a CO2 of 20 with an anion gap of 13. BUN is 32 with a creatinine of 2.08. GFR is 36. Glucose elevated 195 lactate elevated 7.4. UA macro was positive for protein, glucose, ketones and occult blood. Is evidence of hyperkalemia. EKG reveals no changes of hyperkalemia however. This may be due to the electrolyte abnormality. Labs: Laboratory Results - last 24 hr 07/15/23 07/15/23 14:57 15:30 WBC 12.3 H RBC 4.66 Hgb 14.0 Hct 44.4 MCV 95.3 H MCH 30.0 MCHC 31.5 L RDW Std Deviation 44.9 H RDW Coeff of [place] 12.8 Plt Count 204 MPV 9.8 Immature Gran % (Auto) 0.500 Neut % (Auto) 91.7 H Lymph % (Auto) 3.4 L [place] % (Auto) 4.2 Eos % (Auto) 0.0 Baso % (Auto) 0.2 Absolute Neuts (auto) 11.3 H Absolute Lymphs (auto) 0.42 L Nucleated RBC % 0 Differential Comment SCANNED Sodium 138 Potassium 5.4 H Chloride 103 Carbon Dioxide 22.0 Anion Gap 13 BUN 32 H Creatinine 2.08 H Estim Creat Clear Calc 43.38 Est GFR (MDRD) Af Amer 43 L Est GFR (MDRD) Non-Af 36 L BUN/Creatinine Ratio 15.4 Glucose 195 H Lactic Acid 7.4 H* Calcium 8.8 Total Bilirubin 0.30 AST 40 H ALT 48 Alkaline Phosphatase 111 Total Creatine Kinase 127 Total Protein 7.5 Albumin 3.7 Globulin 3.8 Albumin/Globulin Ratio 1.0 Urine Color Yellow Urine Clarity Clear Urine pH 5.0 Ur Specific [place] 1.020 Urine Protein 30 H Urine Glucose (UA) 100 H Urine Ketones 5 H Urine Occult Blood 25 H Urine Nitrite Negative Urine Bilirubin Negative Urine Urobilinogen Normal Ur Leukocyte Esterase Negative Urine RBC 0-5 SEEN Urine WBC 0-5 SEEN Ur Squamous Epith Cells 0 SEEN Urine Bacteria RARE Hyaline Casts 0-5 SEEN Urine Mucus 0 SEEN Urine Opiates Screen NEGATIVE Urine Methadone Screen NEGATIVE Ur Barbiturates Screen NEGATIVE Ur Phencyclidine Scrn NEGATIVE Ur Amphetamines Screen POSITIVE H MDMA (Ecstasy) Screen POSITIVE H U Benzodiazepines Scrn NEGATIVE Urine Cocaine Screen NEGATIVE U Cannabinoids Screen POSITIVE H Ur Drug Screen Comment Venous positive for amphetamines, MDMA and cannabis. This raises concern for ischemia due to drug abuse with amphetamines and MDMA. ABG Data ABG results: ABG 07/15/23 15:50 Specimen Type DONNA Sample Site Not entered VBG pH 7.30 L VBG pO2 52 H VBG HCO3 22 VBG Total CO2 23 VBG O2 Sat (Calc) 82 H VBG Base Excess -5 L POC Mix VBG pCO2 Pt Tmp 43.6 O2 Delivery Device Not entered Radiography Chest X-Ray - ED: 1 View and Read by ED Physician (Chest x-rays and panel reviewed interpreted by me as negative. Cardiac silhouette and size normal. Lung parenchyma normal. Perihilar region unremarkable. Osseous structures unremarkable. This was [id number]) Diagnostic Testing: Clinical Impression(s) from Imaging Studies Chest X-Ray 07/15/23 14:46 IMPRESSION: No radiographic evidence of acute cardiopulmonary disease. Electronically Signed: Nate Baldwin MD at 16:14 EST , Brain CT 07/15/23 15:16 IMPRESSION: Small bilateral lateral ventricles with decreased attenuation in the white matter of both cerebral hemispheres. Element of brain ischemia should BE ruled out. Electronically Signed: Ranjith Turner MD at 15:31 EST , Brain MRI 07/15/23 15:53 IMPRESSION: No intracranial hemorrhage, acute infarct, or space occupying lesion seen on this noncontrast MRI of the brain. Electronically Signed: Nate Baldwin MD at 18:28 EST Reading Location ID and State: [address] [place] [address] Tel , Service support , EKG Initial EKG: Attestation: I personally reviewed and interpreted this EKG as follows: Interpretation: Sinus Tachycardia (Rate is 110. [place] to the left. There is evidence of LVH. [place] interval is 148 ms. Cures duration is 100 ms. QT duration is 362 ms. The EKG is not normal.) Treatment and Re-Evaluation Narrative: Of the CT read by radiologist dysphagia test was performed prior to giving patient any fluids since now he is awake and alert. Talk screen is pending at the time of this addendum The MRI reveals no acute ischemic changes patient be discharged to home. To was informed this was most likely due to the drugs he took. Discharge Plan Triage Chief Complaint: Overdose ED Provider: Nahum Baeza Dx/Rx/DC Orders Clinical Impression: [place] coma scale score 3-8, at arrival to emergency department, Essential hypertension, Mixed hyperlipidemia, Presence of stent in coronary artery, Amphetamine abuse, MDMA abuse, Cannabis use disorder Instructions: ED Drug Abuse Prescriptions: No Action atorvastatin 80 mg tablet 80 mg PO QHS Qty: 30 11RF Patient Comments: pt has not had a refill in over a month amlodipine 10 mg tablet 10 mg PO DAILY Qty: 30 0RF amlodipine [Norvasc] 10 mg tablet 10 mg PO DAILY Qty: 30 0RF atenolol 50 mg tablet 50 mg PO DAILY 30 Days Qty: 30 0RF amlodipine 10 mg tablet See Rx Instructions .ROUTE .COMPLEX Qty: 90 3RF Dose Instruction: take 1 tablet by mouth once daily Patient Comments: pt has not had a refill in over a month Rx Instructions: take 1 tablet by mouth once daily Primary Care Provider: [facility] Sandi Garvey Referrals: [facility] [Non-Staff] [facility] - [facility]-7 Days Disposition Disposition: Home, Self Care
[2023-07-15 16:00] LABS: Differential Comment SCANNED
[2023-07-15 16:01] LABS: Bacteria RARE /hpf (None Seen); Hyaline Cast 0-5 SEEN /lpf (0-5); Red Blood Cells-Urine 0-5 SEEN /hpf (0-5); White Blood Cells 0-5 SEEN /hpf (0-5)
[2023-07-15 16:31] LABS: Amphetamine Urine VISTA POSITIVE (<1000 ng/mL); Barbiturate Urine VISTA NEGATIVE (< 200 ng/mL); Benzodiazepine Urine VISTA NEGATIVE (< 200 ng/mL); Cocaine Urine VISTA NEGATIVE (< 300 ng/mL); Ecstacy Urine VISTA POSITIVE (< 500 ng/mL); Methadone Urine VISTA NEGATIVE (< 300 ng/mL); PCP Urine VISTA NEGATIVE (< 25 ng/mL); THC Urine VISTA POSITIVE (< 50 ng/mL); Vista UDS pH Range 4
[2023-07-15 16:48] LABS: CPK Total, Creatine Kinase 127 U/L (39-308)
--- NOTE | 2023-07-15 16:58 | ED.RN ---
Patient drinking 3 glasses of water. Alert and answering questions appropriately.
[2023-07-15 19:06] LABS: Reflex Lactate? Y
== END 2023-07-15 19:22 | disposition home or self-care (01) ==
PROVIDERS: Emergency Provider Emergency Medicine; Visit Provider Emergency Medicine
DX: R40.4 Transient alteration of awareness (principal); R40.2432 Glasgow coma scale score 3-8, at arrival to emergency department; F15.10 Other stimulant abuse, uncomplicated; F12.90 Cannabis use, unspecified, uncomplicated; I10 Essential (primary) hypertension; E78.2 Mixed hyperlipidemia; N19 Unspecified kidney failure; R74.8 Abnormal levels of other serum enzymes; E87.5 Hyperkalemia; I25.10 Atherosclerotic heart disease of native coronary artery without angina pectoris; I25.2 Old myocardial infarction; Z79.899 Other long term (current) drug therapy; Z95.5 Presence of coronary angioplasty implant and graft
CPT/HCPCS: 70450; 70551; 71045; 80053; 80307; 81001; 82550; 82803; 83605; 85025; 93005; 99285; A4216

== ENCOUNTER 2023-09-03 21:46 | Emergency (ER) | payer MEDICAID, SELFPAY ==
[2023-09-03 21:46] VITALS: BP 117/99; PULSE 101; RESP 16; TEMP 36.2; O2SAT 98; BMI 27.1
--- NOTE | 2023-09-03 22:10 | CT_ITS ---
We are attempting to reach an attending provider to discuss findings. An addendum with communication details will be sent when the communication is complete. INDICATION: pain with recent dissection EXAMINATION: CTA CHEST, ABDOMEN AND PELVIS WITH CONTRAST - TECHNIQUE: A CTA of the chest, abdomen, and pelvis is obtained with sagittal and coronal reconstructed MIP views. Three-dimensional surface rendered sequence of the thoracic and abdominal aorta was obtained. A radiation dose optimization technique was used for this scan. mL of Isovue-370. Oral contrast: None. RADIATION DOSAGE (If Supplied By Facility): CTDIvol = ( 10.86 ) mGy, DLP = ( 712.37 ) mGycm COMPARISON: FINDINGS: CT CHEST: THORACIC AORTA: There is a stent noted from the midportion of the aortic arch extending into the abdominal aorta. There is a false lumen started from the aortic arch extending posteriorly along the descending thoracic aorta. 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 There is a dissection also noted of the left internal iliac artery. No significant atheromatous disease. The iliac arteries are unremarkable. LUNGS: The lungs are well-expanded without acute or chronic changes. No effusions or pneumothorax. MEDIASTINUM: The thyroid gland is normal. No mediastinal or hilar adenopathy. HEART: Heart is normal size. No pericardial effusion. No CAD. CT ABDOMEN AND PELVIS: LIVER: The liver enhances homogeneously. No masses identified. GALLBLADDER: The CBD is normal. Normal gallbladder. SPLEEN: Normal. PANCREAS: No masses or inflammation. ADRENAL GLANDS: Normal. KIDNEYS AND URETERS: The kidneys both enhance appropriately. There are normal size and shape. No hydronephrosis or nephrolithiasis. Right renal cyst. STOMACH: Normal. SMALL BOWEL: No abnormal distention of the small bowel. MESENTERY: No mesenteric inflammation. No ascites. COLON: No significant diverticulosis, masses or inflammation. The colon otherwise is normal. There is a large fatty ileocecal valve. APPENDIX: The appendix is visualized and normal. IVC: Normal. RETROPERITONEUM: No retroperitoneal lymphadenopathy. PELVIC STRUCTURES: Normal bladder. A 5.5 x 6.8 cm collection is noted in the right inguinal region likely a hematoma. BONES: No fractures or significant degenerative disease. CT/CTA Chst, Abd, Pel W and/or WO IMPRESSION: Right inguinal hematoma. There is a stent from the cyst aortic arch to the proximal abdominal aorta. 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 Electronically Signed: Eduardo Singh DO at 23:15 EST Reading Location ID and State: [facility] / [place] Tel [phone], Service support ,
[2023-09-03] MEDS: 0.9% Normal Saline (1000mL) 1,000 ML 150 ML IV (22:22)
[2023-09-03] MEDS: 0.9% Normal Saline (1000mL) 1,000 ML 1000 ML IV (22:22)
[2023-09-03 22:24] LABS: Hematocrit 37.5 % (40-54); Hemoglobin 11.9 g/dL (13.0-16.5); Mean Corp Hgb Conc 31.7 g/dL (32-36); Mean Corpuscular Hgb 29.8 pg (27.0-32.0); Mean Platelet Vol. 9.9 fl (6.2-12.0); POSITIVE COUNT YES; POSITIVE MORPHOLOGY YES; Platelet Count 241 K/mm3 (150-450); RBC Distribution Width SD 43.7 fl (35.1-43.9); Red Blood Count 3.99 M/mm3 (4.6-6.2); White Blood Count 11.6 K/mm3 (4.4-11.0)
[2023-09-03 22:28] LABS: Differential Indicated MANUAL DIFF
[2023-09-03 22:37] LABS: Anion Gap 6 (5-15); BUN 34 mg/dL (7-18); BUN/Creat Ratio 29.8 RATIO (10-20); Calcium,Total 9.5 mg/dL (8.5-10.1); Chloride 98 mmol/L (98-107); Creatinine, Serum 1.14 mg/dL (0.70-1.30); EST Glomerular Filtration Rate 72 mL/min (>60); Est Glom Filt Rate - Afr Amer 87 mL/min (>60); Estimated Creatinine Clearance 78.27 ml/min; Glucose 154 mg/dL (74-106); Potassium 3.6 mmol/L (3.5-5.1); Sodium Level 135 mmol/L (136-145)
[2023-09-03 22:44] LABS: Basophil 2 % (0-1); Eosinophil 3 % (0-5); Lymphocyte 12 % (19-41); Metamyelocyte 2 % (0-1); Monocyte 11 % (0-10); Myelocyte 4 % (0-0); Neutrophil-Band 3 % (0-5); Neutrophil-Segmented 63 % (47-70); Total Cells Counted 100 (MANUAL DIFF)
[2023-09-03 22:47] LABS: Absolute Lymphocyte Count 1.39 X10^3/uL (0.83-4.51); Absolute Neutrophil Count 7.6 X10^3/uL (2.0-7.7)
[2023-09-03 22:48] LABS: Anisocytosis RARE; Macrocytosis RARE; Platelet Estimate ADEQUATE (ADEQ); Red Cell Morphology N CHROM NORMAL (NORM C&C)
[2023-09-03 23:17] LABS: Bacteria 0 SEEN /hpf (None Seen); Mucous, Urine 0 SEEN /hpf (<or=2+); Red Blood Cells-Urine 0 SEEN /hpf (0-5); Squamous Epithelial Cells - UA 0 SEEN /hpf (0-5); White Blood Cells 0 SEEN /hpf (0-5)
[2023-09-03 23:27] LABS: Color, Urine Yellow (Yellow); Glucose, Dipstick 50 mg/dl (Normal); Ketone-Dipstick Negative (Negative); Leukocyte Esterase-Dipstick Negative /ul (Negative); Nitrite-Dipstick Negative (Negative); Occult Blood-Urine Negative /ul (Negative); Protein-Dipstick Negative (Negative); Urine Bilirubin Dipstick Negative (Negative); Urine Clarity Clear (Clear); Urine Urobilinogen Normal (Normal)
--- NOTE | 2023-09-04 00:35 | EDS_ITS ---
HPI History of Present Illness Chief Complaint: Flank Pain Informant: patient Onset/Context/Timing Onset: Days Narrative Narrative: Patient present secondary to flank pain and feeling rundown the past couple of days. 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 He was transferred to in [place] where he had a stent placed. He states a few days after his initial discharge she did have to go back to the hospital because his kidneys were not working well. He did not require dialysis. His potassium was high at the time. He states last couple days he has not felt well and is concerned that maybe his kidneys are working well again. He does report some vague right flank pain. [facility] Medical History Atherosclerotic heart disease of [place] coronary artery without angina pectoris Chest pain at rest Essential hypertension Hypertension goal BP (blood pressure) < 130/80 Mixed hyperlipidemia Old myocardial infarction Presence of stent in coronary artery (~11/2014) Tobacco abuse Wheezing Home Medications atorvastatin 80 mg tablet 80 mg PO QHS #30 tabs 10/04/19 [Rx Last Taken Unknown] amlodipine 10 mg tablet See Rx Instructions .Route .COMPLEX #90 tabs 10/15/20 [Rx Last Taken Unknown] amlodipine 10 mg tablet 10 mg PO DAILY #30 tabs 09/18/21 [Rx Last Taken Unknown] atenolol 50 mg tablet 50 mg PO DAILY 30 days #30 tabs 03/18/23 [Rx Last Taken Unknown] amlodipine 10 mg tablet (Norvasc) 10 mg PO DAILY #30 tabs 06/25/23 [Rx Last Taken Unknown] Allergy/AdvReac Type Severity Reaction Status Date / Time lisinopril Allergy Severe Angioedema Verified 09/03/23 21:49 Family History Father Myocardial infarction CHF (congestive heart failure) Mother CHF (congestive heart failure) Surgical History Presence of coronary angioplasty implant and graft (~11/2014) Social History Smoking Status: Current every day smoker tobacco type: cigarettes alcohol intake: never substance use type: does not use caffeine: Yes Type: coffee Number of servings: 1 ROS ROS ED Constitutional Constitutional ED: Denies chills or fever(s) Eyes Eyes: Denies change in vision or discharge from eye(s) ENT ENT ED: Denies discharge from eye(s), rhinorrhea or sore throat Cardiovascular Cardiovascular: Denies chest pain or palpitations Respiratory/Chest Respiratory/Chest: Denies cough or dyspnea Gastrointestinal Gastrointestinal: Denies abdominal pain, nausea or vomiting Genitourinary Genitourinary ED: Denies dysuria Musculoskeletal Musculoskeletal: Reports back pain; Denies extremity pain Integumentary Denies Abrasions or rash Neurologic Neurologic: Reports weakness; Denies headache(s) Psychiatric Psychiatric: Denies anxiety or depression Allergic/Immunologic Allergic/Immunologic ED: Denies lip swelling or urticaria EXAM Physical Exam Const Vital Signs: 09/03/23 21:46 Temperature 97.2 F L Temperature Source Temporal Pulse Rate 101 H Respiratory Rate 16 Blood Pressure 117/99 H Blood Pressure Mean 105 Pulse Ox 98 Oxygen Delivery Method Room Air Positive well nourished and well developed General Appearance ED: well developed HEENT Reports moist mucous membranes Eyes EOMs intact bilaterally Neck no lymphadenopathy Chest Wall inspection of chest normal and palpation of chest normal Resp normal respiratory effort and clear to auscultation bilaterally Cardio regular rate and regular rhythm GI GI Narrative: Abdomen is soft and nontender. Active bowel sounds throughout. Back/Spine Back/Spine Narrative: Patient turns for back examination without difficulty. No bruising noted. No focal tenderness with palpation. Extremity normal to inspection Neuro oriented x3 and no sensory deficits noted Motor Exam: strength 5/5 throughout Psych mental status grossly normal Skin no rashes or lesions noted MDM MDM MDM Narrative Medical decision making narrative: IV line established. Labwork obtained to evaluate for leukocytosis, anemia, and electrolyte derangement. Urinalysis obtained to evaluate for infection/hematuria. CTA of the chest, abdomen, and pelvis obtained to evaluate prior dissection site and stent. History & Record Review Discussion w/independent historian: Patient Additional record(s) reviewed:: Prior inpatient record, Prior ED visit and Prior labs Lab Data Attestation: I reviewed the patient's lab results. Labs: Laboratory Results - last 24 hr 09/03/23 09/03/23 22:00 23:02 WBC 11.6 H RBC 3.99 L Hgb 11.9 L Hct 37.5 L MCV 94.0 MCH 29.8 MCHC 31.7 L RDW Std Deviation 43.7 RDW Coeff of [place] 13.0 Plt Count 241 MPV 9.9 Neut % (Auto) Not Reportable Absolute Neuts (auto) 7.6 Absolute Lymphs (auto) 1.39 Total Counted 100 Neutrophils % (Manual) 63 Band Neutrophils % 3 Lymphocytes % (Manual) 12 L Monocytes % (Manual) 11 H Eosinophils % (Manual) 3 Basophils % (Manual) 2 H Metamyelocytes % 2 H Myelocytes % 4 H Diff Path Review May foll Platelet Estimate ADEQUATE RBC Morphology N CHROM Anisocytosis RARE Macrocytosis RARE Sodium 135 L Potassium 3.6 Chloride 98 Carbon Dioxide 31.0 Anion Gap 6 BUN 34 H Creatinine 1.14 Estim Creat Clear Calc 78.27 Est GFR (MDRD) Af Amer 87 Est GFR (MDRD) Non-Af 72 BUN/Creatinine Ratio 29.8 H Glucose 154 H Calcium 9.5 Urine Color Yellow Urine Clarity Clear Urine pH 7.0 Ur Specific [place] 1.010 Urine Protein Negative Urine Glucose (UA) 50 H Urine Ketones Negative Urine Occult Blood Negative Urine Nitrite Negative Urine Bilirubin Negative Urine Urobilinogen Normal Ur Leukocyte Esterase Negative Urine RBC 0 SEEN Urine WBC 0 SEEN Ur Squamous Epith Cells 0 SEEN Urine Bacteria 0 SEEN Urine Mucus 0 SEEN Radiography Diagnostic Testing: Clinical Impression(s) from Imaging Studies Chest/Abdomen/Pelvis CTA 09/03/23 22:10 IMPRESSION: Right inguinal hematoma. There is a stent from the cyst aortic arch to the proximal abdominal aorta. 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 Electronically Signed: Eduardo Singh DO at 23:15 EST Reading Location ID and State: [facility] / [place] Tel [phone], Service support , ADDENDUM: 09/03/23 5882 IMPRESSION: Right inguinal hematoma. There is a stent from the cyst aortic arch to the proximal abdominal aorta. 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 N.B. : The above Results were Read Back by Eduardo Singh DO to Yolanda Flores MD, and understanding confirmed on 09/03/2023 23:17:28 (ET). Electronically Signed: Eduardo Singh DO at 23:15 EST Reading Location ID and State: [facility] / [place] Tel [phone], Service support , Treatment and Re-Evaluation :: White blood cell count is 11.6 with normal neutrophil count. Hemoglobin is 11.9. Platelet count is normal at 241. Chemistry studies unremarkable. Glucose is 154. Urinalysis reveals 50 of glucose but no other acute findings. CTA of the chest, abdomen, and pelvis reveals a right inguinal hematoma. There is a stent from the aortic arch to the proximal abdominal aorta. There is a dissection of the aorta posteriorly. Radiologist did call me with the CT results and states there is still contrast in the dissection site. Since the patient's initial surgery in mid July, I am able to find at least 3 to CTA readings on recurrent scans that show the same reading. This is not a new finding. Patient has follow-up with Dr. Huang, his cardiovascular surgeon at . He is comfortable with this and will follow-up as scheduled. Return instructions given. Discharge Plan Triage Chief Complaint: Flank Pain ED Provider: Yolanda Flores Dx/Rx/DC Orders Clinical Impression: Flank pain Instructions: ED Flank Pain, Uncertain Cause Prescriptions: No Action atorvastatin 80 mg tablet 80 mg PO QHS Qty: 30 11RF Patient Comments: pt has not had a refill in over a month amlodipine 10 mg tablet 10 mg PO DAILY Qty: 30 0RF amlodipine [Norvasc] 10 mg tablet 10 mg PO DAILY Qty: 30 0RF atenolol 50 mg tablet 50 mg PO DAILY 30 Days Qty: 30 0RF amlodipine 10 mg tablet See Rx Instructions .ROUTE .COMPLEX Qty: 90 3RF Dose Instruction: take 1 tablet by mouth once daily Patient Comments: pt has not had a refill in over a month Rx Instructions: take 1 tablet by mouth once daily Primary Care Provider: Care Physician,No Primary Referrals: Care Physician,No Primary [Primary Care Provider] - Activity Restrictions/Additional Instructions: Please follow-up with your cardiovascular surgeon at . Disposition Disposition: Home, Self Care Discharge Date/Time: 09/04/23 00:48
[2023-09-05 12:07] LABS: Pathologist Review Reviewed
== END 2023-09-04 00:48 | disposition home or self-care (01) ==
PROVIDERS: Emergency Provider Emergency Medicine; Visit Provider Emergency Medicine
DX: R10.9 Unspecified abdominal pain (principal); I25.10 Atherosclerotic heart disease of native coronary artery without angina pectoris; I10 Essential (primary) hypertension; E78.2 Mixed hyperlipidemia; I25.2 Old myocardial infarction; Z95.5 Presence of coronary angioplasty implant and graft; Z79.899 Other long term (current) drug therapy; F17.210 Nicotine dependence, cigarettes, uncomplicated
CPT/HCPCS: 71275; 74174; 80048; 81001; 85025; 96360; 96361; 99283; J7030; Q9967; A4216